=== PATIENT | male | born 1960 | race Caucasian/White ===

== ENCOUNTER 2018-04-15 09:31 | Observation (INO) ==
[2018-04-15] MEDS ORDERED: Vancomycin Inj 1,000 MG in Sodium Chlor 0.9% Inj 250 ML IV.SIG ONE (10:35)
[2018-04-15] MEDS ORDERED: Piperacil/Tazo 3.375 GM Premix 50 ML IV.SIG ONE (10:36)
[2018-04-15 11:10] LABS: Baso # (Auto) 0.4 th/mm3 (0.0-0.2); Eos # (Auto) 0.1 th/mm3 (0.0-0.4); Eos % (Auto) 0.9 % (0.0-4.0); Hematocrit 42.7 % (39.0-51.0); Hemoglobin 14.8 gm/dL (13.0-17.0); Lymph # (Auto) 0.8 th/mm3 (1.0-4.8); Lymph % (Auto) 6.4 % (9.0-44.0); Mean Corpuscular HGB Conc 34.7 % (32.0-36.0); Mean Corpuscular Hemoglobin 33.2 pg (27.0-34.0); Mean Corpuscular Volume 95.8 fL (80.0-100.0); Mean Platelet Volume 8.3 fL (7.0-11.0); Mono # (Auto) 0.5 th/mm3 (0.0-0.9); Mono % (Auto) 3.8 % (0.0-8.0); Neut # (Auto) 11.4 th/mm3 (1.8-7.7); Neut % (Auto) 85.9 % (16.0-70.0); Platelet Count 149 th/mm3 (150-450); Red Blood Count 4.46 mil/mm3 (4.50-5.90); Red Cell Distribution Width 11.8 % (11.6-17.2); White Blood Count 13.2 th/mm3 (4.0-11.0)
[2018-04-15 11:25] LABS: Potassium 4.4 meq/L (3.5-5.1)
[2018-04-15 11:29] LABS: Calcium 8.3 mg/dL (8.5-10.1)
[2018-04-15 11:30] LABS: Carbon Dioxide 21.5 meq/L (21.0-32.0)
[2018-04-15 11:34] LABS: Lymphocytes 2 % (9-44); Monocytes 4 % (0-8); Myelocytes 1 % (0-0)
[2018-04-15 11:35] LABS: Platelet Morphology Normal (Normal); RBC Morphology Normal (Normal)
--- NOTE | 2018-04-15 11:42 | XR ---
EXAM DATE: 04/15/2018 11:20 AM EST AGE/SEX: 58 years / Male INDICATIONS: Right heel pain, stepped on something yesterday went through his shoe and into heel. CLINICAL DATA: This is the patient's initial encounter. Patient reports that signs and symptoms have been present for 2 days and indicates a pain score of 8/10. MEDICAL/SURGICAL HISTORY: None. None. COMPARISON: No prior exams available for comparison. FINDINGS: Small radiopaque foreign bodies are identified in the plantar surface of the right foot. A small needle like fragment is identified along the undersurface of the third metatarsophalangeal david int. Small radiopaque debris is identified within the heel pad. Bony structures are intact. Small heel spurs are noted. CONCLUSION: Small radiopaque foreign bodies are identified within the plantar soft tissues of the foot both in th e forefoot and heel as described. Electronically signed by: Ramin Dallas MD 04/15/2018 11:40 AM EST
--- NOTE | 2018-04-15 11:49 | ED ---
HPI General Chief Complaint: Extremity Injury, Lower Stated Complaint: rt heel injury Time Seen by Provider: 04/15/18 10:28 History of Present Illness HPI Narrative: Patient presents to the emergency department reporting stepped on a drill bit. States it went in approximately 1 inch and went through his sneakers. He is reporting low-grade temp, chronic numbness and tingling secondary to diabetes, he is also reporting increased pain, 8 out of 10, constant. He denies nausea or vomiting. Last tetanus was 2 years ago. Event happened yesterday. Related Data Home Medications Medication Instructions Recorded Confirmed glipizide 15 mg PO BID 04/15/18 04/15/18 levothyroxine 25 mcg PO DAILY 04/15/18 04/15/18 lisinopril 10 mg PO DAILY 04/15/18 04/15/18 metformin 500 mg PO BID 04/15/18 04/15/18 Allergies Allergy/AdvReac Type Severity Reaction Status Date / Time No Known Allergies Allergy Verified 04/15/18 10:18 Review of Systems ROS: all other systems reviewed are negative [facility] Family History Family History Other Family history of diabetes mellitus Social History Social History Substance History: No History of Abuse Second Hand Smoke Exposure: No Smoking Status: Never smoker How Often Do You Have a Drink Containing Alcohol: Monthly or less Recent Travel in [facility] within the Last 8 Weeks: No Recent Out of Country Travel within the Last 8 Weeks: No Immunization History Tetanus Immunization: <5 Years Exam Narrative Exam Narrative: GENERAL: No acute distress. SKIN: Focused skin assessment warm/dry. HEAD: Atraumatic. Normocephalic. EYES: Pupils equal and round. No scleral icterus. No injection or drainage. ENT: No nasal bleeding or discharge. Mucous membranes pink and moist. NECK: Trachea midline. No JVD. CARDIOVASCULAR: Regular rate and rhythm. No murmur appreciated. RESPIRATORY: No accessory muscle use. Clear to auscultation. Breath sounds equal bilaterally. GASTROINTESTINAL: Abdomen soft, non-tender, nondistended. Hepatic and splenic margins not palpable. MUSCULOSKELETAL: Positive puncture wound on the sole of R foot, no active drainage, + TTP in area of wound, sensation intact, + DP pulse NEUROLOGICAL: Awake and alert. No obvious cranial nerve deficits. Motor grossly within normal limits. Normal speech. PSYCHIATRIC: Appropriate mood and affect; insight and judgment normal. Course Initial Documented Vital Signs Temperature 100.2 F H 04/15/18 10:02 Pulse Rate 99 H 04/15/18 10:02 Respiratory Rate 16 04/15/18 10:02 Blood Pressure 165/78 H 04/15/18 10:02 Pulse Oximetry 97 04/15/18 10:02 Last Documented Vital Signs Temperature 99.5 F 04/15/18 13:43 Pulse Rate 92 H 04/15/18 13:43 Respiratory Rate 18 04/15/18 13:43 Blood Pressure 158/72 H 04/15/18 13:43 Pulse Oximetry 96 04/15/18 13:43 Medical Decision Making MDM Narrative Medical decision making narrative: Patient presents to the emergency department with a right foot puncture wound secondary to stepping on a drill bit while wearing sneakers. Patient is a diabetic. Labs and x-rays were ordered. Patient also given 1 g IV vancomycin and 3.375 IV Zosyn. 1200: Leukocytosis, elevated blood sugar, XR: FINDINGS: Small radiopaque foreign bodies are identified in the plantar surface of the right foot.A small needle like fragment is identified along the undersurface of the third metatarsophalangeal joint.Small radiopaque debris is identified within the heel pad.Bony structures are intact. Small heel spurs are noted.CONCLUSION: Small radiopaque foreign bodies are identified within the plantar soft tissues of the foot both in the forefoot and heel as described. 1201: Ortho paged. Spoke to Dr May's PA-> Advised to do 10-14 days of bactrim and doxy and have patient f/u in clinic within 1 week. They would not go and do surgery now, would re-evaluate for possible infection. 1215: Hospitalist paged for admission for obs for IV abx. Medical Screen Exam Complete: Yes Emergency Medical Condition: Yes Lab Data Result diagrams: 04/15/18 10:50 04/15/18 10:50 Lab Results 04/15/18 04/15/18 04/15/18 Range/Units 10:50 10:50 13:40 CBC w Diff Slide review pending WBC 13.2 H (4.0-11.0) th/mm3 RBC 4.46 L (4.50-5.90) mil/mm3 Hgb 14.8 (13.0-17.0) gm/dL Hct 42.7 (39.0-51.0) % MCV 95.8 (80.0-100.0) fL MCH 33.2 (27.0-34.0) pg MCHC 34.7 (32.0-36.0) % RDW 11.8 (11.6-17.2) % Plt Count 149 L (150-450) th/mm3 MPV 8.3 (7.0-11.0) fL Neut % (Auto) 85.9 H (16.0-70.0) % Lymph % (Auto) 6.4 L (9.0-44.0) % [place] % (Auto) 3.8 (0.0-8.0) % Eos % (Auto) 0.9 (0.0-4.0) % Baso % (Auto) 3.0 H (0.0-2.0) % Neut # (Auto) 11.4 H (1.8-7.7) th/mm3 Lymph # (Auto) 0.8 L (1.0-4.8) th/mm3 [place] # (Auto) 0.5 (0.0-0.9) th/mm3 Eos # (Auto) 0.1 (0.0-0.4) th/mm3 Baso # (Auto) 0.4 H (0.0-0.2) th/mm3 WBC Differential Manual diff final Seg Neuts % (Manual) 92 H (16-70) % Band Neuts % (Manual) 1 (0-6) % Lymphocytes % (Manual) 2 L (9-44) % Monocytes % (Manual) 4 (0-8) % Myelocytes % (Man) 1 H (0-0) % Abs Neuts (Manual) 12.4 H (1.8-7.7) th/mm3 Differential Comment . Platelet Estimate Low L (Normal) Platelet Morphology Normal (Normal) RBC Morphology Normal (Normal) Sodium 133 L (136-145) meq/L Potassium 4.4 (3.5-5.1) meq/L Chloride 99 (98-107) meq/L Carbon Dioxide 21.5 (21.0-32.0) meq/L Anion Gap 13 (5-15) meq/L BUN 17 (7-18) mg/dL Creatinine 1.10 (0.60-1.30) mg/dL Estimated GFR 69 L (>89) mL/min POC Glucose 259 H (68-110) mg/dl Random Glucose 368 H (74-106) mg/dL Calcium 8.3 L (8.5-10.1) mg/dL 04/15/18 Range/Units 16:51 CBC w Diff WBC (4.0-11.0) th/mm3 RBC (4.50-5.90) mil/mm3 Hgb (13.0-17.0) gm/dL Hct (39.0-51.0) % MCV (80.0-100.0) fL MCH (27.0-34.0) pg MCHC (32.0-36.0) % RDW (11.6-17.2) % Plt Count (150-450) th/mm3 MPV (7.0-11.0) fL Neut % (Auto) (16.0-70.0) % Lymph % (Auto) (9.0-44.0) % [place] % (Auto) (0.0-8.0) % Eos % (Auto) (0.0-4.0) % Baso % (Auto) (0.0-2.0) % Neut # (Auto) (1.8-7.7) th/mm3 Lymph # (Auto) (1.0-4.8) th/mm3 [place] # (Auto) (0.0-0.9) th/mm3 Eos # (Auto) (0.0-0.4) th/mm3 Baso # (Auto) (0.0-0.2) th/mm3 WBC Differential Seg Neuts % (Manual) (16-70) % Band Neuts % (Manual) (0-6) % Lymphocytes % (Manual) (9-44) % Monocytes % (Manual) (0-8) % Myelocytes % (Man) (0-0) % Abs Neuts (Manual) (1.8-7.7) th/mm3 Differential Comment Platelet Estimate (Normal) Platelet Morphology (Normal) RBC Morphology (Normal) Sodium (136-145) meq/L Potassium (3.5-5.1) meq/L Chloride (98-107) meq/L Carbon Dioxide (21.0-32.0) meq/L Anion Gap (5-15) meq/L BUN (7-18) mg/dL Creatinine (0.60-1.30) mg/dL Estimated GFR (>89) mL/min POC Glucose 190 H (68-110) mg/dl Random Glucose (74-106) mg/dL Calcium (8.5-10.1) mg/dL Imaging Data Radiologist's impression: Foot X-Ray 04/15/18 10:33 CONCLUSION: Small radiopaque foreign bodies are identified within the plantar soft tissues of the foot both in the forefoot and heel as described. Discharge Plan Discharge Disposition Patient Disposition: 30 Still Patient Discharge Condition Condition: Stable Discharge Details Diagnosis: Cellulitis of heel, right, Puncture wound of right heel Physicians Team ED Provider: Ada Escoto Primary Care Provider: Primary Care Aby Lara Attending Provider: Victor Manuel Jimenez Other Providers: Alden Lazaro Discharge Interventions Interventions: ED Discharge Assessment Last Done: 04/15/18 14:13 Status ED Status: Left Department Discharge Information Discharge Date/Time: 04/15/18 14:00
[2018-04-15] MEDS ORDERED: Sod Chloride 0.9% Inj 1,000 ML IV.SIG SCH (12:15)
[2018-04-15] MEDS ORDERED: Dextrose 50% in Water 50 ML Vial IV.PUSH PRN (12:56)
[2018-04-15] MEDS ORDERED: Bisacodyl 10 MG Supp RECTAL PRN (12:58)
[2018-04-15] MEDS ORDERED: Vancomycin Consult Pharmacy OTHER PRN (12:58)
[2018-04-15] MEDS ORDERED: Acetaminophen 325 MG Tablet PO PRN ×2 (12:59→13:00)
[2018-04-15] MEDS ORDERED: Naloxone Inj 0.4 MG/ML Vial IV.PUSH PRN (13:00)
[2018-04-15] MEDS ORDERED: Ketorolac Inj 30 MG/ML (IVP) Vial IV.PUSH PRN ×2 (13:00)
--- NOTE | 2018-04-15 14:01 | P.HP ---
History of Present Illness Primary Care Physician: No Primary Care Physician Chief Complaint: Right heel injury History of Present Illness: This is a 58-year-old male with a history of diabetes mellitus, hypertension and hypothyroidism. Patient presents to the emergency department because of right heel injury when he stepped on a metal resembling a drill bit which went through his sneaker yesterday in his backyard. He reports of low-grade temperature and worsening constant pain scale of 8 out of 10 involving the right foot. It has been bleeding. Tetanus shot 2 years ago. Foot x-ray independently reviewed by me with foreign bodies in the plantar surface of the third metatarsophalangeal joint and heel pad. Punctured wound was irrigated in the emergency department. Patient received IV vancomycin in the emergency department. All other systems reviewed negative, denies fever, chills, cough, UTI symptoms and diarrhea. Review of Systems All other systems reviewed negative except as stated in HPI PMFSH - History History Provided By: Patient - Medical History Medical History: Medical History (Last Reviewed 04/15/18 @ 13:57 by Victor Manuel Jimenez MD) Diabetes HTN (hypertension) Hypothyroid - Surgical History Surgical History: Surgical History (Last Reviewed 04/15/18 @ 13:57 by Victor Manuel Jimenez MD) History of nasal surgery - Family History Family History: Family History (Last Updated 04/15/18 @ 14:57 by Victor Manuel Jimenez MD) Other Family history of diabetes mellitus - Social History I have reviewed the patient's Social History: Yes - Tobacco History Second Hand Smoke Exposure: No Smoking Status: Never smoker - Alcohol History How Often Do You Have a Drink Containing Alcohol: Never - Substance Use History Substance History: No History of Abuse - Travel History Recent Travel in the [place] Within the Last 8 Weeks: No Recent Travel Out of the Country Within the Last 8 Weeks: No - Immunization History Tetanus Immunization: <5 Years Medications and Allergies Active Medications: Active Medications Acetaminophen (Tylenol) 650 mg PO Q4H PRN PRN Reason: Temp > 100.4 Acetaminophen (Tylenol) 650 mg PO Q6HR PRN PRN Reason: PAIN SCALE 1 TO 2 Al Hydroxide/Mg Hydroxide (Milk Of Magnesia Liq) 30 ml PO Q12H PRN PRN Reason: Mild Constipation Bisacodyl (Dulcolax Supp) 10 mg RECTAL DAILY PRN PRN Reason: SEVERE CONSITIPATION Dextrose (D50w Vial) 50 ml IV.PUSH UNSCH PRN PRN Reason: PER HYPOGLYCEMIA PROTOCOL Glipizide (Glucotrol) 15 mg PO BID [facility] Glucagon (Glucagon Inj) 1 mg OTHER PRN PRN PRN Reason: for Hypoglycemia Protocol Sodium Chloride (Ns Inj) 1,000 mls @ 100 mls/hr IV.CONT .Q10H [facility] Piperacillin/Tazobactam/Dextrose (Zosyn 3.375 Gm Premix) 50 mls @ 100 mls/hr IV.SIG Q6H [facility] Insulin Aspart (Novolog Insulin Correctional Sugar Inj) 0 unit SQ ACHS [facility]; Protocol Ketorolac Tromethamine (Toradol Inj) 15 mg IV.PUSH Q6H PRN PRN Reason: PAIN 3-5; IF UABLE TO TAKE PO Stop: 04/20/18 12:59 Ketorolac Tromethamine (Toradol Inj) 30 mg IV.PUSH Q6H PRN PRN Reason: PAIN 6-10;IF UNABLE TO TAKE PO Stop: 04/20/18 12:59 Lactulose (Lactulose Liq) 30 ml PO DAILY PRN PRN Reason: SEVERE CONSITIPATION Levothyroxine Sodium (Synthroid) 25 mcg PO DAILY@0600 [facility] Lisinopril (Prinivil) 10 mg PO DAILY [facility] Metformin HCl (Glucophage) 500 mg PO BID [facility] Naloxone HCl (Narcan Inj) 0.4 mg IV.PUSH UNSCH PRN PRN Reason: SEE LABEL COMMENTS Ondansetron HCl (Zofran Inj) 4 mg IV.PUSH Q6H PRN PRN Reason: NAUSEA OR VOMITING Pharmacy Profile Note (Vancomycin Consult Pharmacy) 1 each OTHER UNSCH PRN PRN Reason: Pharmacy to dose Senna/Docusate Sodium (Rosa-Colace) 1 tab PO BID [facility] Sennosides (Senokot) 17.2 mg PO Q12H PRN PRN Reason: Moderate Constipation Tramadol HCl (Ultram) 50 mg PO Q4H PRN PRN Reason: PAIN SCALE 3 TO 5 Tramadol HCl (Ultram) 100 mg PO Q4H PRN PRN Reason: PAIN SCALE 6 TO 10 Allergies Allergy/AdvReac Type Severity Reaction Status Date / Time No Known Allergies Allergy Verified 04/15/18 10:18 Home Medications Medication Instructions Recorded Confirmed Type glipizide 15 mg PO BID 04/15/18 04/15/18 History levothyroxine 25 mcg PO DAILY 04/15/18 04/15/18 History lisinopril 10 mg PO DAILY 04/15/18 04/15/18 History metformin 500 mg PO BID 04/15/18 04/15/18 History Exam Vital signs: Vital Signs 04/15/18 10:02 04/15/18 13:43 Temperature 100.2 F H 99.5 F Pulse Rate 99 H 92 H Respiratory Rate 16 18 Blood Pressure 165/78 H 158/72 H Pulse Oximetry 97 96 Intake & Output 04/14/18 04/15/18 04/15/18 18:59 06:59 18:59 Intake Total 1300 / 1300 Balance 1300 / 1300 Weight 106.4 kg Intake: IV 1300 / 1300 Zosyn 3.375 GM Premix 50 ML @ 50 / 50 100 mls/hr IV.SIG ONCE ONE Rx#: [id number] NS Inj 1,000 ML @ 1000 mls/hr 1000 / 1000 IV.SIG BOLUS [facility] Rx#:[id number] Vancomycin Inj 1,000 MG In NS 250 / 250 Inj 250 ML @ 250 mls/hr IV.SIG ONCE ONE Rx#:[id number] Narrative: GENERAL: WD WN SKIN: Warm and dry. Punctured wd in the right heel which is tender and slightly warm. No active drainage. HEAD: Atraumatic. Normocephalic. EYES: Pupils equal and round. No scleral icterus. No injection or drainage. ENT: No nasal bleeding or discharge. Mucous membranes pink and moist. NECK: Trachea midline. No JVD. CARDIOVASCULAR: Regular rate and rhythm. RESPIRATORY: No accessory muscle use. Clear to auscultation. Breath sounds equal bilaterally. GASTROINTESTINAL: Abdomen soft, non-tender, nondistended. MUSCULOSKELETAL: Extremities without clubbing, cyanosis, or edema. No obvious deformities. NEUROLOGICAL: Awake and alert. No obvious cranial nerve deficits. Motor grossly within normal limits. Five out of 5 muscle strength in the arms and legs. Normal speech. PSYCHIATRIC: Appropriate mood and affect; insight and judgment normal. Results - Labs CBC & Chem 7: 04/15/18 10:50 04/15/18 10:50 Labs: Laboratory Results - last 24 hr 04/15/18 04/15/18 04/15/18 10:50 10:50 13:40 CBC w Diff Slide review pending WBC 13.2 H RBC 4.46 L Hgb 14.8 Hct 42.7 MCV 95.8 MCH 33.2 MCHC 34.7 RDW 11.8 Plt Count 149 L MPV 8.3 Neut % (Auto) 85.9 H Lymph % (Auto) 6.4 L [place] % (Auto) 3.8 Eos % (Auto) 0.9 Baso % (Auto) 3.0 H Neut # (Auto) 11.4 H Lymph # (Auto) 0.8 L [place] # (Auto) 0.5 Eos # (Auto) 0.1 Baso # (Auto) 0.4 H WBC Differential Manual diff final Seg Neuts % (Manual) 92 H Band Neuts % (Manual) 1 Lymphocytes % (Manual) 2 L Monocytes % (Manual) 4 Myelocytes % (Man) 1 H Abs Neuts (Manual) 12.4 H Differential Comment . Platelet Estimate Low L Platelet Morphology Normal RBC Morphology Normal Sodium 133 L Potassium 4.4 Chloride 99 Carbon Dioxide 21.5 Anion Gap 13 BUN 17 Creatinine 1.10 Estimated GFR 69 L POC Glucose 259 H Random Glucose 368 H Calcium 8.3 L - Imaging Impressions Foot X-Ray 04/15/18 10:33 CONCLUSION: Small radiopaque foreign bodies are identified within the plantar soft tissues of the foot both in the forefoot and heel as described. Caprini VTE Risk Assessment Caprini VTE Risk Assessment: Moderate/High Risk (score >= 2) Caprini Risk Assessment Model: Point Value = 1 Point Value = 2 Point Value = 3 Point Value = 5 Age 41-60 Minor surgery BMI > 25 kg/m2 Swollen legs Varicose veins or History of unexplained or recurrent spontaneous Oral contraceptives or hormone replacement Sepsis (< 1 month) Serious lung disease, including pneumonia (< 1 month) Abnormal pulmonary function Acute myocardial infarction Congestive heart failure (< 1 month) History of inflammatory bowel disease Medical patient at bed rest Age 61-74 Arthroscopic surgery Major open surgery (> 45 min) Laparoscopic surgery (> 45 min) Malignancy Confined to bed (> 72 hours) Immobilizing plaster cast Central venous access Age >= 75 History of VTE Family history of VTE Factor V Leiden Prothrombin [id number] Lupus anticoagulant Anticardiolipin antibodies Elevated serum homocysteine Heparin-induced thrombocytopenia Other congenital or acquired thrombophilia Stroke (< 1 month) Elective arthroplasty Hip, pelvis, or leg fracture Acute spinal cord injury (< 1 month) Prophylaxis Regimen: Total Risk Factor Score Risk Level Prophylaxis Regimen 0-1 Low Early ambulation 2 Moderate Order ONE of the following: *Sequential Compression Device (SCD) *Heparin 5000 units SQ BID 3-4 Higher Order ONE of the following medications: *Heparin 5000 units SQ TID *Enoxaparin/Lovenox 40 mg SQ daily (WT < 150 kg, CrCl > 30 mL/min) *Enoxaparin/Lovenox 30 mg SQ daily (WT < 150 kg, CrCl > 10-29 mL/min) *Enoxaparin/Lovenox 30 mg SQ BID (WT < 150 kg, CrCl > 30 mL/min) AND/OR *Sequential Compression Device (SCD) 5 or more Highest Order ONE of the following medications: *Heparin 5000 units SQ TID (Preferred with Epidurals) *Enoxaparin/Lovenox 40 mg SQ daily (WT < 150 kg, CrCl > 30 mL/min) *Enoxaparin/Lovenox 30 mg SQ daily (WT < 150 kg, CrCl > 10-29 mL/min) *Enoxaparin/Lovenox 30 mg SQ BID (WT < 150 kg, CrCl > 30 mL/min) AND *Sequential Compression Device (SCD) Assessment and Plan - Plan This is a 58-year-old male with a history of diabetes mellitus, hypertension and hypothyroidism. He presents with a right heel injury after stepping on a drill bit associated with low-grade temperature and constant pain. X-ray show foreign body in the heel pad Likely infected punctured wound with retained FB(drill bit) - right foot with sepsis. Continue IV vancomycin and Zosyn. Pain management with tramadol and IV Toradol. Keep patient n.p.o. and consult podiatry. Follow-up culture. FB in the right metatarsophalangeal joint area. No evidence of foreign body on direct inspection. Uncontrolled diabetes mellitus not in DKA. Continue IV hydration and monitor fingersticks with sliding scale coverage. Restart home medication of glipizide and metformin DVT prophylaxis with SCD and early ambulation
--- NOTE | 2018-04-15 15:10 | P.PNPOD ---
Physical Exam Vital signs: Vital Signs 04/15/18 10:02 04/15/18 13:43 Temperature 100.2 F H 99.5 F Pulse Rate 99 H 92 H Respiratory Rate 16 18 Blood Pressure 165/78 H 158/72 H Pulse Oximetry 97 96 Intake & Output 04/14/18 04/15/18 04/15/18 18:59 06:59 18:59 Intake Total 1300 / 1300 Balance 1300 / 1300 Weight 106.4 kg Intake: IV 1300 / 1300 Zosyn 3.375 GM Premix 50 ML @ 50 / 50 100 mls/hr IV.SIG ONCE ONE Rx#: [id number] NS Inj 1,000 ML @ 1000 mls/hr 1000 / 1000 IV.SIG BOLUS [facility] Rx#:[id number] Vancomycin Inj 1,000 MG In NS 250 / 250 Inj 250 ML @ 250 mls/hr IV.SIG ONCE ONE Rx#:[id number] Medications and Allergies Active Medications: Active Medications Acetaminophen (Tylenol) 650 mg PO Q4H PRN PRN Reason: Temp > 100.4 Acetaminophen (Tylenol) 650 mg PO Q6HR PRN PRN Reason: PAIN SCALE 1 TO 2 Al Hydroxide/Mg Hydroxide (Milk Of Magnesia Liq) 30 ml PO Q12H PRN PRN Reason: Mild Constipation Bisacodyl (Dulcolax Supp) 10 mg RECTAL DAILY PRN PRN Reason: SEVERE CONSITIPATION Dextrose (D50w Vial) 50 ml IV.PUSH UNSCH PRN PRN Reason: PER HYPOGLYCEMIA PROTOCOL Glipizide (Glucotrol) 15 mg PO BID [facility] Glucagon (Glucagon Inj) 1 mg OTHER PRN PRN PRN Reason: for Hypoglycemia Protocol Sodium Chloride (Ns Inj) 1,000 mls @ 100 mls/hr IV.CONT .Q10H [facility] Piperacillin/Tazobactam/Dextrose (Zosyn 3.375 Gm Premix) 50 mls @ 100 mls/hr IV.SIG Q6H [facility] Insulin Aspart (Novolog Insulin Correctional Sugar Inj) 0 unit SQ ACHS [facility]; Protocol Ketorolac Tromethamine (Toradol Inj) 15 mg IV.PUSH Q6H PRN PRN Reason: PAIN 3-5; IF UABLE TO TAKE PO Stop: 04/20/18 12:59 Ketorolac Tromethamine (Toradol Inj) 30 mg IV.PUSH Q6H PRN PRN Reason: PAIN 6-10;IF UNABLE TO TAKE PO Stop: 04/20/18 12:59 Lactulose (Lactulose Liq) 30 ml PO DAILY PRN PRN Reason: SEVERE CONSITIPATION Levothyroxine Sodium (Synthroid) 25 mcg PO DAILY@0600 [facility] Lisinopril (Prinivil) 10 mg PO DAILY [facility] Metformin HCl (Glucophage) 500 mg PO BID [facility] Naloxone HCl (Narcan Inj) 0.4 mg IV.PUSH UNSCH PRN PRN Reason: SEE LABEL COMMENTS Ondansetron HCl (Zofran Inj) 4 mg IV.PUSH Q6H PRN PRN Reason: NAUSEA OR VOMITING Pharmacy Profile Note (Vancomycin Consult Pharmacy) 1 each OTHER UNSCH PRN PRN Reason: Pharmacy to dose Senna/Docusate Sodium (Rosa-Colace) 1 tab PO BID [facility] Sennosides (Senokot) 17.2 mg PO Q12H PRN PRN Reason: Moderate Constipation Tramadol HCl (Ultram) 50 mg PO Q4H PRN PRN Reason: PAIN SCALE 3 TO 5 Tramadol HCl (Ultram) 100 mg PO Q4H PRN PRN Reason: PAIN SCALE 6 TO 10 Allergies Allergy/AdvReac Type Severity Reaction Status Date / Time No Known Allergies Allergy Verified 04/15/18 10:18 Home Medications Medication Instructions Recorded Confirmed Type glipizide 15 mg PO BID 04/15/18 04/15/18 History levothyroxine 25 mcg PO DAILY 04/15/18 04/15/18 History lisinopril 10 mg PO DAILY 04/15/18 04/15/18 History metformin 500 mg PO BID 04/15/18 04/15/18 History Results - Labs CBC & Chem 7: 04/15/18 10:50 04/15/18 10:50 Laboratory Results - last 24 hr 04/15/18 04/15/18 04/15/18 10:50 10:50 13:40 CBC w Diff Slide review pending WBC 13.2 H RBC 4.46 L Hgb 14.8 Hct 42.7 MCV 95.8 MCH 33.2 MCHC 34.7 RDW 11.8 Plt Count 149 L MPV 8.3 Neut % (Auto) 85.9 H Lymph % (Auto) 6.4 L [place] % (Auto) 3.8 Eos % (Auto) 0.9 Baso % (Auto) 3.0 H Neut # (Auto) 11.4 H Lymph # (Auto) 0.8 L [place] # (Auto) 0.5 Eos # (Auto) 0.1 Baso # (Auto) 0.4 H WBC Differential Manual diff final Seg Neuts % (Manual) 92 H Band Neuts % (Manual) 1 Lymphocytes % (Manual) 2 L Monocytes % (Manual) 4 Myelocytes % (Man) 1 H Abs Neuts (Manual) 12.4 H Differential Comment . Platelet Estimate Low L Platelet Morphology Normal RBC Morphology Normal Sodium 133 L Potassium 4.4 Chloride 99 Carbon Dioxide 21.5 Anion Gap 13 BUN 17 Creatinine 1.10 Estimated GFR 69 L POC Glucose 259 H Random Glucose 368 H Calcium 8.3 L - Imaging Impressions Foot X-Ray 04/15/18 10:33 CONCLUSION: Small radiopaque foreign bodies are identified within the plantar soft tissues of the foot both in the forefoot and heel as described. Assessment and Plan - Assessment (1) Puncture wound of right heel Code(s): S91.331A - Puncture wound without foreign body, right foot, initial encounter Status: Acute (2) Cellulitis of heel, right Code(s): L03.115 - Cellulitis of right lower limb Status: Acute - Plan Consent ordered NPO after midnight Surgery planned noon tomorrow Plan to see patient tomorrow
[2018-04-15] MEDS: Sod Chloride 0.9% Inj 1,000 ML IV.CONT SCH (15:51)
[2018-04-15] MEDS: Insulin NovoLOG Aspart Correctional Sugar Inj SQ SCH ×2 (17:06→21:45)
[2018-04-15] MEDS: Senna/Docusate Sodium 8.6/50 MG Tablet PO SCH (21:42)
[2018-04-15] MEDS: glipiZIDE 5 MG Tablet PO SCH (21:42)
[2018-04-15] MEDS: Piperacil/Tazo 3.375 GM Premix 50 ML IV.SIG SCH (21:57)
[2018-04-16] MEDS: Vancomycin Inj 1,250 MG in Sodium Chlor 0.9% Inj 250 ML IV.SIG SCH ×2 (00:28→11:45)
[2018-04-16] MEDS: Sod Chloride 0.9% Inj 1,000 ML IV.CONT SCH ×3 (00:28→18:55)
[2018-04-16] MEDS: Piperacil/Tazo 3.375 GM Premix 50 ML IV.SIG SCH ×4 (03:36→20:26)
[2018-04-16 06:53] LABS: Baso % (Auto) 0.1 % (0.0-2.0); Eos # (Auto) 0.1 th/mm3 (0.0-0.4); Eos % (Auto) 1.2 % (0.0-4.0); Hemoglobin 14.6 gm/dL (13.0-17.0); Lymph # (Auto) 1.5 th/mm3 (1.0-4.8); Lymph % (Auto) 13.4 % (9.0-44.0); Mean Corpuscular Hemoglobin 32.6 pg (27.0-34.0); Mean Corpuscular Volume 95.8 fL (80.0-100.0); Mean Platelet Volume 8.1 fL (7.0-11.0); Mono # (Auto) 0.6 th/mm3 (0.0-0.9); Mono % (Auto) 5.4 % (0.0-8.0); Neut # (Auto) 9.2 th/mm3 (1.8-7.7); Neut % (Auto) 79.9 % (16.0-70.0); Platelet Count 158 th/mm3 (150-450); Red Blood Count 4.49 mil/mm3 (4.50-5.90); White Blood Count 11.4 th/mm3 (4.0-11.0)
[2018-04-16 07:00] LABS: Chloride 102 meq/L (98-107); Potassium 3.7 meq/L (3.5-5.1); Sodium 136 meq/L (136-145)
[2018-04-16 07:08] LABS: Calcium 7.8 mg/dL (8.5-10.1)
[2018-04-16 07:09] LABS: Anion Gap 11 meq/L (5-15); Carbon Dioxide 23.2 meq/L (21.0-32.0)
[2018-04-16 07:24] LABS: Blood Urea Nitrogen 8 mg/dL (7-18); Glomerular Filtration Rate Greater Than 89 mL/min (>89); Glucose,Random 123 mg/dL (74-106)
[2018-04-16] MEDS: Insulin NovoLOG Aspart Correctional Sugar Inj SQ SCH ×4 (08:30→20:33)
[2018-04-16] MEDS: Lisinopril 10 MG Tablet PO SCH (09:27)
[2018-04-16] MEDS: Senna/Docusate Sodium 8.6/50 MG Tablet PO SCH ×2 (09:29→20:35)
[2018-04-16] MEDS: glipiZIDE 5 MG Tablet PO SCH (09:34)
[2018-04-16] MEDS ORDERED: fentaNYL Citrate Inj 100 MCG/2 ML Ampul ONE (11:51)
[2018-04-16] MEDS ORDERED: Bupivacaine PF 0.25% Inj 30 ML Vial ONE (12:00)
[2018-04-16] MEDS ORDERED: Chlorhexidine Gluconate 2% 1 Pack (2 Cloths) TOPICAL ONE (12:17)
[2018-04-16] MEDS ORDERED: Metoprolol Tartrate 25 MG Tablet PO ONE (12:17)
[2018-04-16] MEDS ORDERED: Neomycin/Polymyxin G.U. Irrigant 1 ML Ampul ONE (12:19)
--- NOTE | 2018-04-16 12:19 | P.CONPOD ---
History of Present Illness Service: podiatry Consult date: 04/16/18 Reason for Consult: Right heel puncture wound Primary Care Provider: No Primary Care Physician Chief Complaint: Right heel injury History of Present Illness: Patient states that he stepped on a piece of metal hard on the right heel a few days prior to admission. He says the pain progressively worsened and he tried to go to work on Sunday, but could not due to pain increasing. he is diabetic. He says his sugars are usually under 150mg/dl Review of Systems All other systems reviewed negative except as stated in HPI PMFSH - History History Provided By: Patient - Medical History Medical History: Medical History (Last Reviewed 04/15/18 @ 13:57 by Victor Manuel Jimenez MD) Diabetes HTN (hypertension) Hypothyroid - Surgical History Surgical History: Surgical History (Last Reviewed 04/15/18 @ 13:57 by Victor Manuel Jimenez MD) History of nasal surgery - Family History Family History: Family History (Last Updated 04/15/18 @ 14:57 by Victor Manuel Jimenez MD) Other Family history of diabetes mellitus - Tobacco History Second Hand Smoke Exposure: No Smoking Status: Never smoker - Alcohol History How Often Do You Have a Drink Containing Alcohol: Monthly or less - Substance Use History Substance History: No History of Abuse - Travel History Recent Travel in the [place] Within the Last 8 Weeks: No Recent Travel Out of the Country Within the Last 8 Weeks: No - Immunization History Tetanus Immunization: <5 Years Medications and Allergies Active Medications: Active Medications Acetaminophen (Tylenol) 650 mg PO Q4H PRN PRN Reason: Temp > 100.4 Acetaminophen (Tylenol) 650 mg PO Q6HR PRN PRN Reason: PAIN SCALE 1 TO 2 Al Hydroxide/Mg Hydroxide (Milk Of Magnesia Liq) 30 ml PO Q12H PRN PRN Reason: Mild Constipation Bisacodyl (Dulcolax Supp) 10 mg RECTAL DAILY PRN PRN Reason: SEVERE CONSITIPATION Dextrose (D50w Vial) 50 ml IV.PUSH UNSCH PRN PRN Reason: PER HYPOGLYCEMIA PROTOCOL Glucagon (Glucagon Inj) 1 mg OTHER PRN PRN PRN Reason: for Hypoglycemia Protocol Sodium Chloride (Ns Inj) 1,000 mls @ 100 mls/hr IV.CONT .Q10H [facility] Last Admin: 04/16/18 09:58 Dose: 100 mls/hr Piperacillin/Tazobactam/Dextrose (Zosyn 3.375 Gm Premix) 50 mls @ 100 mls/hr IV.SIG Q6H [facility] Last Infusion: 04/16/18 09:58 Dose: Infused Vancomycin HCl 1,250 mg/ (Sodium Chloride) 262.5 mls @ 250 mls/hr IV.SIG Q12H [facility] Last Admin: 04/16/18 11:45 Dose: 250 mls/hr Insulin Aspart (Novolog Insulin Correctional Sugar Inj) 0 unit SQ [facility]; Protocol Last Admin: 04/16/18 11:06 Dose: Not Given Ketorolac Tromethamine (Toradol Inj) 15 mg IV.PUSH Q6H PRN PRN Reason: PAIN 3-5; IF UABLE TO TAKE PO Stop: 04/20/18 12:59 Ketorolac Tromethamine (Toradol Inj) 30 mg IV.PUSH Q6H PRN PRN Reason: PAIN 6-10;IF UNABLE TO TAKE PO Stop: 04/20/18 12:59 Lactulose (Lactulose Liq) 30 ml PO DAILY PRN PRN Reason: SEVERE CONSITIPATION Levothyroxine Sodium (Synthroid) 25 mcg PO DAILY@0600 [facility] Last Admin: 04/16/18 05:09 Dose: Not Given Lisinopril (Prinivil) 10 mg PO DAILY [facility] Last Admin: 04/16/18 09:27 Dose: 10 mg Miscellaneous Information ([facility] Ordered Lab Info) 0 each OTHER ONCE ONE Stop: 04/17/18 11:46 Naloxone HCl (Narcan Inj) 0.4 mg IV.PUSH UNSCH PRN PRN Reason: SEE LABEL COMMENTS Ondansetron HCl (Zofran Inj) 4 mg IV.PUSH Q6H PRN PRN Reason: NAUSEA OR VOMITING Pharmacy Profile Note (Vancomycin Consult Pharmacy) 1 each OTHER UNSCH PRN PRN Reason: Pharmacy to dose Senna/Docusate Sodium (Rosa-Colace) 1 tab PO BID [facility] Last Admin: 04/16/18 09:29 Dose: Not Given Sennosides (Senokot) 17.2 mg PO Q12H PRN PRN Reason: Moderate Constipation Tramadol HCl (Ultram) 50 mg PO Q4H PRN PRN Reason: PAIN SCALE 3 TO 5 Last Admin: 04/16/18 03:39 Dose: 50 mg Tramadol HCl (Ultram) 100 mg PO Q4H PRN PRN Reason: PAIN SCALE 6 TO 10 Last Admin: 04/15/18 15:48 Dose: 100 mg Allergies Allergy/AdvReac Type Severity Reaction Status Date / Time No Known Allergies Allergy Verified 04/15/18 10:18 Home Medications Medication Instructions Recorded Confirmed Type glipizide 15 mg PO BID 04/15/18 04/15/18 History levothyroxine 25 mcg PO DAILY 04/15/18 04/15/18 History lisinopril 10 mg PO DAILY 04/15/18 04/15/18 History metformin 500 mg PO BID 04/15/18 04/15/18 History Physical Exam Vital signs: Vital Signs 04/15/18 13:43 04/15/18 20:00 04/16/18 00:16 Temperature 99.5 F 99.6 F 99.3 F Pulse Rate 92 H 94 H 94 H Respiratory Rate 18 18 18 Blood Pressure 158/72 H 147/78 H 143/76 H Pulse Oximetry 96 95 96 04/16/18 11:01 04/16/18 11:34 Temperature 96.7 F L 96.7 F L Pulse Rate 80 80 Respiratory Rate 18 18 Blood Pressure 151/90 H 151/90 H Pulse Oximetry 96 96 Intake & Output 04/15/18 04/16/18 04/16/18 18:59 06:59 18:59 Intake Total 1620 / 1620 1600 / 1600 1050 / 1050 Balance 1620 / 1620 1600 / 1600 1050 / 1050 Weight 106.4 kg 106 kg Intake: IV 1300 / 1300 1600 / 1600 1050 / 1050 NS Inj 1,000 ML @ 100 mls/hr IV 1000 / 1000 1000 / 1000 .CONT .Q10H [facility] Rx#:[id number] Zosyn 3.375 GM Premix 50 ML @ 50 / 50 100 / 100 50 / 50 100 mls/hr IV.SIG Q6H [facility] Rx#: [id number] NS Inj 1,000 ML @ 1000 mls/hr 1000 / 1000 IV.SIG BOLUS [facility] Rx#:[id number] Vancomycin Inj 1,000 MG In NS 250 / 250 Inj 250 ML @ 250 mls/hr IV.SIG ONCE ONE Rx#:[id number] Vancomycin Inj 1,250 MG In NS 500 / 500 Inj 250 ML @ 250 mls/hr IV.SIG Q12H [facility] Rx#:[id number] Oral 320 / 320 0 / 0 Other: # Voids 2 Narrative: Right plantar heel with small puncture wound with mild surrounding erythema/ edema. A small metal fragment is noted in center of puncture area with tenderness to palpation noted. There is no jose purulence noted. Results - Labs CBC & Chem 7: 04/16/18 06:18 04/16/18 06:18 Laboratory Results - last 24 hr 04/15/18 04/15/18 04/15/18 13:40 16:51 21:45 CBC w Diff WBC RBC Hgb Hct MCV MCH MCHC RDW Plt Count MPV Neut % (Auto) Lymph % (Auto) [place] % (Auto) Eos % (Auto) Baso % (Auto) Neut # (Auto) Lymph # (Auto) [place] # (Auto) Eos # (Auto) Baso # (Auto) WBC Differential Differential Comment Sodium Potassium Chloride Carbon Dioxide Anion Gap BUN Creatinine Estimated GFR POC Glucose 259 H 190 H 183 H Random Glucose Calcium 04/16/18 04/16/18 04/16/18 06:18 06:18 07:19 CBC w Diff Auto diff final WBC 11.4 H RBC 4.49 L Hgb 14.6 Hct 43.0 MCV 95.8 MCH 32.6 MCHC 34.0 RDW 12.0 Plt Count 158 MPV 8.1 Neut % (Auto) 79.9 H Lymph % (Auto) 13.4 [place] % (Auto) 5.4 Eos % (Auto) 1.2 Baso % (Auto) 0.1 Neut # (Auto) 9.2 H Lymph # (Auto) 1.5 [place] # (Auto) 0.6 Eos # (Auto) 0.1 Baso # (Auto) 0.0 WBC Differential . Differential Comment . Sodium 136 Potassium 3.7 Chloride 102 Carbon Dioxide 23.2 Anion Gap 11 BUN 8 Creatinine 0.77 Estimated GFR Greater than 89 POC Glucose 136 H Random Glucose 123 H D Calcium 7.8 L 04/16/18 10:50 CBC w Diff WBC RBC Hgb Hct MCV MCH MCHC RDW Plt Count MPV Neut % (Auto) Lymph % (Auto) [place] % (Auto) Eos % (Auto) Baso % (Auto) Neut # (Auto) Lymph # (Auto) [place] # (Auto) Eos # (Auto) Baso # (Auto) WBC Differential Differential Comment Sodium Potassium Chloride Carbon Dioxide Anion Gap BUN Creatinine Estimated GFR POC Glucose 145 H Random Glucose Calcium Microbiology 04/15/18 10:55 Blood - Peripheral Aerobic Blood Culture - Preliminary No growth in 1 day 04/15/18 10:55 Blood - Peripheral Anaerobic Blood Culture - Preliminary No growth in 1 day 04/15/18 10:50 Blood - Peripheral Aerobic Blood Culture - Preliminary No growth in 1 day 04/15/18 10:50 Blood - Peripheral Anaerobic Blood Culture - Preliminary No growth in 1 day Assessment and Plan - Assessment (1) Puncture wound of right heel Code(s): S91.331A - Puncture wound without foreign body, right foot, initial encounter Status: Acute (2) Cellulitis of heel, right Code(s): L03.115 - Cellulitis of right lower limb Status: Acute - Plan Consent reviewed NPO Surgery planned noon today Risks, benefits, potential complications discussed with patient. He is agreeable to proceed with surgery. (1) Puncture wound of right heel Qualifiers: Encounter type: initial encounter Qualified Code(s): S91.331A - Puncture wound without foreign body, right foot, initial encounter
--- NOTE | 2018-04-16 12:24 | P.BOP ---
- Preoperative Diagnosis (1) Cellulitis of heel, right (2) Puncture wound of right heel - Postoperative Diagnosis (1) Cellulitis of heel, right (2) Puncture wound of right heel Date of procedure: 04/16/18 Procedure: 1. Irrigation and debridement of puncture wound right plantar heel Plantar right heel with puncture wound with small metal fragment visible, mild surrounding erythema. 1ml milky pink purulence encountered. Wound explored and found to be the following size: 0.5 cm x 0.5 cm x 1.5 cm deep Incision made to extend puncture wound 0.5cm distally and proximally. Foreign body encountered resembling rubber and gravel. Excisional debridement performed of the cylindrical wound utilizing #15 blade, rongeur, curette, of debris and nonviable tissue down to level of subcutaneous tissue and irrigated with 3L Normal saline with irrigant Packing with 1/4'' iodoform gauze and partial closure with 2-0 nylon suture. Dressing with 4x4, abd, cast padding, pb right foot. Nonweightbearing right foot. Daily packing ordered per nursing. Await cultures No further surgery planned at this time Ok with discharge when cultures back with daily packing to continue at home and antibiotic Rx per culture results. Anesthesia: MAC, local (10mL 0.25% marcaine plain) Surgeon: Alden Lazaro DPM Shank Skinner: staff Estimated blood loss (mL): 3 Pathology: other (1. culture right heel) Condition: stable Disposition: PACU
[2018-04-16] MEDS ORDERED: Lidocaine PF 1% Inj 5 ML Syringe INFILTRATN ONE (12:29)
[2018-04-16] MEDS ORDERED: Sodium Chlor 0.9% Inj 500 ML IV.SIG SCH (13:00)
--- NOTE | 2018-04-16 15:37 | P.PN ---
Subjective Interval history: Follow up for diabetic foot infection status post I&D of puncture wound right plantar heel. Patient is currently resting in bed. He reports adequate pain control. No fever or chills. Physical Exam Vital signs: Vital Signs 04/15/18 20:00 04/16/18 00:16 04/16/18 11:01 Temperature 99.6 F 99.3 F 96.7 F L Pulse Rate 94 H 94 H 80 Respiratory Rate 18 18 18 Blood Pressure 147/78 H 143/76 H 151/90 H Pulse Oximetry 95 96 96 04/16/18 11:34 04/16/18 12:50 04/16/18 13:16 Temperature 96.7 F L 97.8 F Pulse Rate 80 69 87 Respiratory Rate 18 16 16 Blood Pressure 151/90 H 78/50 L 110/67 Pulse Oximetry 96 98 95 04/16/18 13:31 04/16/18 13:42 04/16/18 14:07 Temperature 98.1 F 97.0 F L Pulse Rate 83 84 84 Respiratory Rate 16 16 14 Blood Pressure 112/75 116/78 153/88 H Pulse Oximetry 97 97 84 L Intake & Output 04/15/18 04/16/18 04/16/18 18:59 06:59 18:59 Intake Total 1620 / 1620 1600 / 1600 2112.5 / 2112.5 Balance 1620 / 1620 1600 / 1600 2112.5 / 2112.5 Weight 106.4 kg 106 kg Intake: IV 1300 / 1300 1600 / 1600 1712.5 / 1712.5 NS Inj 1,000 ML @ 100 mls/hr IV 1000 / 1000 1000 / 1000 .CONT .Q10H [facility] Rx#:[id number] LR 1000 mL Inj 1,000 ML @ 30 400 / 400 mls/hr IV.SIG .Q24H [facility] Rx#: [id number] Zosyn 3.375 GM Premix 50 ML @ 50 / 50 100 / 100 50 / 50 100 mls/hr IV.SIG Q6H [facility] Rx#: [id number] NS Inj 1,000 ML @ 1000 mls/hr 1000 / 1000 IV.SIG BOLUS [facility] Rx#:[id number] Vancomycin Inj 1,000 MG In NS 250 / 250 Inj 250 ML @ 250 mls/hr IV.SIG ONCE ONE Rx#:[id number] Vancomycin Inj 1,250 MG In NS 500 / 500 262.5 / 262.5 Inj 250 ML @ 250 mls/hr IV.SIG Q12H [facility] Rx#:[id number] Oral 320 / 320 0 / 0 Anesthesia Amount 400 / 400 Other: # Voids 2 Narrative: GENERAL: Alert, NAD. SKIN: Warm and dry. HEAD: Normocephalic. EYES: No scleral icterus. No injection or drainage. NECK: Supple, trachea midline. No JVD or lymphadenopathy. CARDIOVASCULAR: Regular rate and rhythm without murmurs, gallops, or rubs. RESPIRATORY: Breath sounds equal bilaterally. No accessory muscle use. GASTROINTESTINAL: Abdomen soft, non-tender, nondistended. MUSCULOSKELETAL: No cyanosis, or edema. Right foot wrapped. S/p I&D. BACK: Nontender without obvious deformity. No CVA tenderness. Results - Labs CBC & Chem 7: 04/16/18 06:18 04/16/18 06:18 Laboratory Results - last 24 hr 04/15/18 04/15/18 04/16/18 16:51 21:45 06:18 CBC w Diff Auto diff final WBC 11.4 H RBC 4.49 L Hgb 14.6 Hct 43.0 MCV 95.8 MCH 32.6 MCHC 34.0 RDW 12.0 Plt Count 158 MPV 8.1 Neut % (Auto) 79.9 H Lymph % (Auto) 13.4 [place] % (Auto) 5.4 Eos % (Auto) 1.2 Baso % (Auto) 0.1 Neut # (Auto) 9.2 H Lymph # (Auto) 1.5 [place] # (Auto) 0.6 Eos # (Auto) 0.1 Baso # (Auto) 0.0 WBC Differential . Differential Comment . Sodium Potassium Chloride Carbon Dioxide Anion Gap BUN Creatinine Estimated GFR POC Glucose 190 H 183 H Random Glucose Calcium 04/16/18 04/16/18 04/16/18 06:18 07:19 10:50 CBC w Diff WBC RBC Hgb Hct MCV MCH MCHC RDW Plt Count MPV Neut % (Auto) Lymph % (Auto) [place] % (Auto) Eos % (Auto) Baso % (Auto) Neut # (Auto) Lymph # (Auto) [place] # (Auto) Eos # (Auto) Baso # (Auto) WBC Differential Differential Comment Sodium 136 Potassium 3.7 Chloride 102 Carbon Dioxide 23.2 Anion Gap 11 BUN 8 Creatinine 0.77 Estimated GFR Greater than 89 POC Glucose 136 H 145 H Random Glucose 123 H D Calcium 7.8 L 04/16/18 14:14 CBC w Diff WBC RBC Hgb Hct MCV MCH MCHC RDW Plt Count MPV Neut % (Auto) Lymph % (Auto) [place] % (Auto) Eos % (Auto) Baso % (Auto) Neut # (Auto) Lymph # (Auto) [place] # (Auto) Eos # (Auto) Baso # (Auto) WBC Differential Differential Comment Sodium Potassium Chloride Carbon Dioxide Anion Gap BUN Creatinine Estimated GFR POC Glucose 153 H Random Glucose Calcium Microbiology 04/15/18 10:55 Blood - Peripheral Aerobic Blood Culture - Preliminary No growth in 1 day 04/15/18 10:55 Blood - Peripheral Anaerobic Blood Culture - Preliminary No growth in 1 day 04/15/18 10:50 Blood - Peripheral Aerobic Blood Culture - Preliminary No growth in 1 day 04/15/18 10:50 Blood - Peripheral Anaerobic Blood Culture - Preliminary No growth in 1 day - Imaging Foot X-Ray 04/15/18 10:33 CONCLUSION: Small radiopaque foreign bodies are identified within the plantar soft tissues of the foot both in the forefoot and heel as described. - Procedures Irrigation and debridement of puncture wound right plantar heel 04/16/2018. Assessment and Plan - Plan Mr. Ashraf is a pleasant 58-year-old male with a history of diabetes mellitus, hypertension, hypothyroidism who presented to the emergency department on 04/15/2018 due to right heel injury when he stepped on a metal resembling a drill bit which went through his sneaker. Foot x-ray shows small radiopaque foreign bodies within the plantar soft tissues. Podiatry was consulted. Infected puncture wound of the right foot -Wound culture pending. Blood cultures negative so far. -Patient is currently on vancomycin and Zosyn. -Toradol, tramadol for pain -If cultures are negative, will consider empiric antibiotics at the time of discharge. Diabetes mellitus -Patient takes metformin and glipizide at home. -Blood glucose within goal range 140-180. -Continue sliding scale insulin for now. -We will try to adjust patient's metformin and glipizide dosage at the time of discharge. Hypothyroidism Hypertension -Levothyroxine 25 mcg every morning and Lisinopril 10mg Qday. Full code. SCDs.
[2018-04-16 19:11] VITALS: O2SAT 97
--- NOTE | 2018-04-16 21:39 | MP ---
cc: Alden Lazaro DPVera DATE OF OPERATION: 04/16/2018 INDICATIONS: The patient presented initially after puncture wound to his right heel a few days prior to admission, he stated that the pain was increasing. Something had punctured through his shoe that he stated was some piece of metal. He had noticed increased pain and came in for admission. I discussed with him the risks, benefits, and potential complications of surgery and that he did need to undergo irrigation and debridement of the puncture wound to the right plantar heel. He agreed to move forward with surgery as discussed. DESCRIPTION OF PROCEDURE: He was seen in preop holding by myself, nursing staff, and anesthesia, where the correct patient, side, and site were all confirmed to be correct, the right foot. He was then taken to the surgical suite in supine position. The right foot was prepped and draped in normal sterile fashion. After timeouts were performed as per facility protocol, attention was directed to the right plantar heel where there was noted to be a puncture wound visible with small metal fragments at the surface. There was noted to be approximately 1 mL of milky purulent pink material that was encountered. Upon further exploration of the wound, the original wound was found to be approximately 0.5 cm in diameter x 1.5 cm in depth down to but not including bone through the subcutaneous layer. An incision was made to extend the puncture wound, both proximally and distally an additional 0.5 cm. The foreign body was encountered resembling a rubber, gravel, or possibly the sole of his shoe that had punctured through. It was small, but it was deep within the wound cavity. Excisional debridement was then performed of the cylindrical shaped wound utilizing a #15 blade rongeur to curette of all the debris and nonviable tissue down to the level of subcutaneous tissue, followed by irrigation with 3 liters of normal saline with irrigant, followed by partial closure with 2-0 nylon suture and packing with 1/4 inch iodoform gauze. The patient tolerated the procedure and anesthesia well without complications and was taken back to PACU with vital signs stable and vascular status intact to the remainder of the right lower extremity. He will be nonweightbearing to the right lower extremity and will follow up in clinic in 2 weeks for sutures to be removed. He is to continue packing. No further surgery is planned at this time. SHORT OPERATIVE NOTE SURGEON: Alden Lazaro DPM BUDGET ENGINEER: Staff. PREOPERATIVE DIAGNOSES: 1. Cellulitis of right heel. 2. Puncture wound, right heel. POSTOPERATIVE DIAGNOSIS: 1. Cellulitis of right heel. 2. Puncture wound, right heel. PROCEDURE PERFORMED: Irrigation and debridement of puncture wound, right plantar heel. PROPHYLAXIS: On IV antibiotics already. PATHOLOGY: Culture, right heel. ANESTHESIA: MAC plus local consisting of 10 mL of 0.25% Marcaine plain. ESTIMATED BLOOD LOSS: 3 mL. COMPLICATIONS: None. CONDITION: Stable to PACU. DISPOSITION: Nonweightbearing right foot. Daily packing orders were placed per nursing to teach the patient how to do this daily at home upon discharge. We will await cultures to determine appropriate antibiotics. No further surgery is planned at this time. Follow up in clinic in 2 weeks for possible suture removal. GINNY Kirkpatrick/katie , 07:19 PM , 07:25 PM
[2018-04-17] MEDS: Vancomycin Inj 1,250 MG in Sodium Chlor 0.9% Inj 250 ML IV.SIG SCH (00:59)
[2018-04-17] MEDS: Piperacil/Tazo 3.375 GM Premix 50 ML IV.SIG SCH ×2 (02:50→08:54)
[2018-04-17] MEDS: Sod Chloride 0.9% Inj 1,000 ML IV.CONT SCH (05:34)
[2018-04-17] MEDS: Insulin NovoLOG Aspart Correctional Sugar Inj SQ SCH (08:53)
[2018-04-17] MEDS: Senna/Docusate Sodium 8.6/50 MG Tablet PO SCH (08:54)
[2018-04-17] MEDS: Lisinopril 10 MG Tablet PO SCH (08:54)
[2018-04-17 09:34] VITALS: BP 148/90; PULSE 90; RESP 18; TEMP 96.4
--- NOTE | 2018-04-17 09:56 | P.DCO ---
- Home Health Nursing Order: Signs/symptoms of disease process, Diabetic education, Medication education-adverse effect, Wound care and dressing changes, Nursing assessment with vital signs - Case Management Consult Yes - Certification I have seen patient Clint Ashraf on 04/17/18. My clinical findings support the need for the requested home health care services because: Limited mobility due to disease progression, Deconditioned with increased weakness, Limited ability to care for self, High risk of falls, Infection with risk of complications I certify that my clinical findings support that this patient is homebound because: Post-op weakness, Unsteady gait/balance, Unsafe to leave home unassisted, Need for psychosocial assistance, Unable to use public transportation
--- NOTE | 2018-04-17 10:49 | P.DS ---
Date of admission: 04/15/18 12:50 Primary care physician: No Primary Care Physician Attending physician on discharge: Abraham Villavicencio Anticipated date of discharge: 04/17/18 Brief History from admission: This is a 58-year-old male with a history of diabetes mellitus, hypertension and hypothyroidism. Patient presents to the emergency department because of right heel injury when he stepped on a metal resembling a drill bit which went through his sneaker yesterday in his backyard. He reports of low-grade temperature and worsening constant pain scale of 8 out of 10 involving the right foot. It has been bleeding. Tetanus shot 2 years ago. Foot x-ray independently reviewed by me with foreign bodies in the plantar surface of the third metatarsophalangeal joint and heel pad. Punctured wound was irrigated in the emergency department. Patient received IV vancomycin in the emergency department. All other systems reviewed negative, denies fever, chills, cough, UTI symptoms and diarrhea. Patient update on day of discharge: Patient is doing well. Wants to go home. is at bedside. No fever, chills. DS: Medications - Discharge Medications Prescriptions: doxycycline hyclate 100 mg PO BID #28 tab glimepiride 2 mg PO QAM #30 tab metformin 1,000 mg PO BID #60 tab tramadol 50 mg PO Q6H PRN #12 tab PRN Reason: Pain DS: Summary Hospital Course: Mr. Ashraf is a pleasant 58-year-old male with a history of diabetes mellitus, hypertension, hypothyroidism who presented to the emergency department on 04/15/2018 due to right heel injury when he stepped on a metal resembling a drill bit which went through his sneaker. Foot x-ray shows small radiopaque foreign bodies within the plantar soft tissues. Podiatry was consulted. Infected puncture wound of the right foot -Wound culture pending. Blood cultures negative so far. -Patient received vancomycin and Zosyn. -Toradol, tramadol for pain -Patient remains afebrile. Wants to go home. Will discharge him on Doxycycline. Diabetes mellitus -Patient takes metformin and glipizide at home. -Blood glucose within goal range 140-180. -Continue sliding scale insulin for now. -We recommend increasing Metformin to 1000mg BID and switching Glipizide to glimepiride 2 mg daily. Medications will need to be adjusted by PCP. Hypothyroidism Hypertension -Levothyroxine 25 mcg every morning and Lisinopril 10mg Qday. Full code. SCDs. Will try to get home health nursing for dressing change. - Time Spent with Patient Total time spent providing and/or coordinating discharge services: Less than 30 minutes - Quality: VTE Deep Vein Thrombosis/Pulmonary Embolism Present on Admission: No Exam Vital signs: Vital Signs 04/16/18 11:01 04/16/18 11:34 04/16/18 12:50 Temperature 96.7 F L 96.7 F L 97.8 F Pulse Rate 80 80 69 Respiratory Rate 18 18 16 Blood Pressure 151/90 H 151/90 H 78/50 L Pulse Oximetry 96 96 98 04/16/18 13:16 04/16/18 13:31 04/16/18 13:42 Temperature 98.1 F Pulse Rate 87 83 84 Respiratory Rate 16 16 16 Blood Pressure 110/67 112/75 116/78 Pulse Oximetry 95 97 97 04/16/18 14:07 04/16/18 19:10 04/16/18 21:16 Temperature 97.0 F L 97.0 F L 98.6 F Pulse Rate 84 69 88 Respiratory Rate 14 16 20 Blood Pressure 153/88 H 158/85 H 144/78 H Pulse Oximetry 84 L 97 97 04/17/18 00:00 04/17/18 08:00 Temperature 97.9 F 96.4 F L Pulse Rate 83 90 Respiratory Rate 20 18 Blood Pressure 144/84 H 148/90 H Pulse Oximetry 97 97 Intake & Output 04/16/18 04/17/18 04/17/18 18:59 06:59 18:59 Intake Total 3162.5 / 3162.5 2302.5 / 2302.5 50 / 50 Balance 3162.5 / 3162.5 2302.5 / 2302.5 50 / 50 Weight 106 kg Intake: IV 2762.5 / 2762.5 1262.5 / 1262.5 50 / 50 NS Inj 1,000 ML @ 100 mls/hr IV 2000 / 2000 900 / 900 .CONT .Q10H [facility] Rx#:[id number] LR 1000 mL Inj 1,000 ML @ 30 400 / 400 mls/hr IV.SIG .Q24H [facility] Rx#: [id number] Zosyn 3.375 GM Premix 50 ML @ 100 / 100 100 / 100 50 / 50 100 mls/hr IV.SIG Q6H [facility] Rx#: [id number] Vancomycin Inj 1,250 MG In NS 262.5 / 262.5 262.5 / 262.5 Inj 250 ML @ 250 mls/hr IV.SIG Q12H [facility] Rx#:[id number] Oral 1040 / 1040 Anesthesia Amount 400 / 400 Other: # Voids 4 # Bowel Movements 1 Results Procedures completed during hospitalization: Irrigation and debridement of puncture wound right plantar heel 04/16/2018. Labs on day of discharge: Labs from last 24 hours 04/17/18 04/16/18 04/16/18 08:00 20:29 16:47 POC Glucose 208 H 229 H 126 H 04/16/18 04/16/18 14:14 10:50 POC Glucose 153 H 145 H Preliminary micro results at discharge 04/15/18 10:55 Aerobic Blood Culture - Preliminary Blood - Peripheral No growth in 1 day Anaerobic Blood Culture - Preliminary No growth in 1 day 04/15/18 10:50 Aerobic Blood Culture - Preliminary Blood - Peripheral No growth in 1 day Anaerobic Blood Culture - Preliminary No growth in 1 day - Impressions ITS Impressions Foot X-Ray 04/15/18 10:33 CONCLUSION: Small radiopaque foreign bodies are identified within the plantar soft tissues of the foot both in the forefoot and heel as described. Discharge Plan - Discharge Disposition Patient Disposition: /Home Health Service - Discharge Condition Condition: Stable - Discharge Order Discharge Orders: Discharge Order (Routine); Ordered 04/17/18 Ordered By: Abraham Villavicencio - Discharge Details Anticipated Discharge Date: 04/17/18 - Physicians Team Primary Care Provider: Primary Care Aby Lara Attending Provider: Abraham Villavicencio Other Providers: Alden Lazaro DPM
[2018-04-17] MEDS ORDERED: Pharmacy Ordered Lab Info OTHER ONE (11:45)
== END 2018-04-17 12:07 | disposition home health service (06) ==
LOC: PHEDA 09:31 → PHEFT 09:31 → PH3 14:00
PROVIDERS: ADMIT Hospitalist; ATTEND Hospitalist

== ENCOUNTER 2018-05-25 16:34 | Observation (INO) ==
--- NOTE | 2018-05-25 16:55 | ED ---
HPI General Chief complaint: Extremity Injury, Lower Stated complaint: doc sent/foot Time Seen by Provider: 05/25/18 16:43 Source: patient Mode of arrival: ambulatory Limitations: no limitations History of Present Illness HPI narrative: 58-year-old male patient with history of diabetes, and recent history of a puncture wound to the right heel status post surgical exploration and treatment by podiatry presents back to the ER today because of ongoing pain and cellulitis at the heel right heel. The strapper sent him in because they are concerned that he could have osteomyelitis of the heel at this point and wants a patient to be admitted and get MRI workup for osteomyelitis. He denies any fevers or any other issues. Modifying Factors: None Associated Signs & Symptoms: Right heel cellulitis, possible osteomyelitis Risk Factors: Diabetic Related Data Home Medications Medication Instructions Recorded Confirmed levothyroxine 75 mcg PO DAILY 04/15/18 05/25/18 lisinopril 40 mg PO DAILY 04/15/18 05/25/18 [id number] 1 tab PO DAILY 05/25/18 05/25/18 [Multivitamin 50 Plus] Previous Rx's Medication Instructions Recorded glimepiride 2 mg PO QAM #30 tab 04/17/18 metformin 1,000 mg PO BID #60 tab 04/17/18 Allergies Allergy/AdvReac Type Severity Reaction Status Date / Time No Known Allergies Allergy Verified 05/25/18 16:37 Review of Systems ROS: all other systems reviewed are negative [facility] Medical History Medical History Diabetes (Acute) HTN (hypertension) (Acute) Hypothyroid (Acute) Surgical History Surgical History History of nasal surgery (Acute) Family History Family History Other Family history of diabetes mellitus Social History Social History Substance History: No History of Abuse Second Hand Smoke Exposure: No Smoking Status: Never smoker How Often Do You Have a Drink Containing Alcohol: Never Recent Travel in [place] within the Last 8 Weeks: No Recent Out of Country Travel within the Last 8 Weeks: No Immunization History Tetanus Immunization: <5 Years Exam Narrative Exam Narrative: GENERAL: Well-developed middle-age male patient currently in mild distress. Awake and oriented x3. SKIN: Focused skin assessment warm/dry. There is notable puncture wound to the bottom part of the right heel, with surrounding erythema, mildly tender to palpation. HEAD: Atraumatic. Normocephalic. EYES: Pupils equal and round. No scleral icterus. No injection or drainage. ENT: No nasal bleeding or discharge. Mucous membranes pink and moist. NECK: Trachea midline. No JVD. CARDIOVASCULAR: Regular rate and rhythm. No murmur appreciated. RESPIRATORY: No accessory muscle use. Clear to auscultation. Breath sounds equal bilaterally. GASTROINTESTINAL: Abdomen soft, non-tender, nondistended. Hepatic and splenic margins not palpable. MUSCULOSKELETAL: No obvious deformities. No clubbing. No cyanosis. No edema. NEUROLOGICAL: Awake and alert. No obvious cranial nerve deficits. Motor grossly within normal limits. Normal speech. PSYCHIATRIC: Appropriate mood and affect; insight and judgment normal. Course Initial Documented Vital Signs Temperature 97.2 F L 05/25/18 16:35 Pulse Rate 89 05/25/18 16:35 Respiratory Rate 20 05/25/18 16:35 Blood Pressure 165/76 H 05/25/18 16:35 Pulse Oximetry 98 05/25/18 16:35 Last Documented Vital Signs Temperature 97.2 F L 05/25/18 16:35 Pulse Rate 89 05/25/18 16:35 Respiratory Rate 20 05/25/18 16:35 Blood Pressure 165/76 H 05/25/18 16:35 Pulse Oximetry 98 05/25/18 16:35 Medical Decision Making MDM Narrative Medical decision making narrative: Workup was initiated in the patient. Vital signs are stable in the ER. Case has been discussed with Dr. Sanchez for admission. Podiatry will be consulted and further workup ordered for the patient. Medical Screen Exam Complete: Yes Emergency Medical Condition: Yes Differential Diagnosis Differential Diagnosis: Cellulitis versus osteomyelitis of the heel Lab Data Lab results reviewed: Yes I reviewed the patient's lab results. Result diagrams: 05/25/18 16:55 05/25/18 16:55 Lab Results 05/25/18 05/25/18 05/25/18 Range/Units 16:54 16:55 16:55 WBC 7.6 (4.0-11.0) th/mm3 RBC 4.36 L (4.50-5.90) mil/mm3 Hgb 14.8 (13.0-17.0) gm/dL Hct 40.9 (39.0-51.0) % MCV 93.8 (80.0-100.0) fL MCH 33.9 (27.0-34.0) pg MCHC 36.2 H (32.0-36.0) % RDW 13.2 (11.6-17.2) % Plt Count 185 (150-450) th/mm3 MPV 8.5 (7.0-11.0) fL Neut % (Auto) 64.8 (16.0-70.0) % Lymph % (Auto) 25.9 (9.0-44.0) % Addison % (Auto) 6.3 (0.0-8.0) % Eos % (Auto) 2.5 (0.0-4.0) % Baso % (Auto) 0.5 (0.0-2.0) % Neut # (Auto) 4.9 (1.8-7.7) th/mm3 Lymph # (Auto) 2.0 (1.0-4.8) th/mm3 Addison # (Auto) 0.5 (0.0-0.9) th/mm3 Eos # (Auto) 0.2 (0.0-0.4) th/mm3 Baso # (Auto) 0.0 (0.0-0.2) th/mm3 WBC Differential . Differential Comment Auto diff final ESR (0-20) mm/hr Sodium 139 (136-145) meq/L Potassium 4.0 (3.5-5.1) meq/L Chloride 106 (98-107) meq/L Carbon Dioxide 25.4 (21.0-32.0) meq/L Anion Gap 8 (5-15) meq/L BUN 28 H (7-18) mg/dL Creatinine 1.36 H (0.60-1.30) mg/dL Estimated GFR 54 L (>89) mL/min POC Glucose 248 H (68-110) mg/dl Random Glucose 251 H (74-106) mg/dL Lactic Acid (0.4-2.0) mmol/L Calcium 8.6 (8.5-10.1) mg/dL Magnesium 2.0 (1.5-2.5) mg/dL Total Bilirubin 0.5 (0.2-1.0) mg/dL AST 26 (15-37) U/L ALT 47 (12-78) U/L Alkaline Phosphatase 130 H (45-117) U/L C-Reactive Protein 0.86 H (0.00-0.30) mg/dL Total Protein 7.5 (6.4-8.2) g/dL Albumin 3.9 (3.4-5.0) g/dL 05/25/18 05/25/18 Range/Units 16:55 17:00 WBC (4.0-11.0) th/mm3 RBC (4.50-5.90) mil/mm3 Hgb (13.0-17.0) gm/dL Hct (39.0-51.0) % MCV (80.0-100.0) fL MCH (27.0-34.0) pg MCHC (32.0-36.0) % RDW (11.6-17.2) % Plt Count (150-450) th/mm3 MPV (7.0-11.0) fL Neut % (Auto) (16.0-70.0) % Lymph % (Auto) (9.0-44.0) % Addison % (Auto) (0.0-8.0) % Eos % (Auto) (0.0-4.0) % Baso % (Auto) (0.0-2.0) % Neut # (Auto) (1.8-7.7) th/mm3 Lymph # (Auto) (1.0-4.8) th/mm3 Addison # (Auto) (0.0-0.9) th/mm3 Eos # (Auto) (0.0-0.4) th/mm3 Baso # (Auto) (0.0-0.2) th/mm3 WBC Differential Differential Comment ESR 40 H (0-20) mm/hr Sodium (136-145) meq/L Potassium (3.5-5.1) meq/L Chloride (98-107) meq/L Carbon Dioxide (21.0-32.0) meq/L Anion Gap (5-15) meq/L BUN (7-18) mg/dL Creatinine (0.60-1.30) mg/dL Estimated GFR (>89) mL/min POC Glucose (68-110) mg/dl Random Glucose (74-106) mg/dL Lactic Acid 1.3 (0.4-2.0) mmol/L Calcium (8.5-10.1) mg/dL Magnesium (1.5-2.5) mg/dL Total Bilirubin (0.2-1.0) mg/dL AST (15-37) U/L ALT (12-78) U/L Alkaline Phosphatase (45-117) U/L C-Reactive Protein (0.00-0.30) mg/dL Total Protein (6.4-8.2) g/dL Albumin (3.4-5.0) g/dL Discharge Plan Discharge Disposition Patient Disposition: ED Admit(ED Internal Use Only) Discharge Condition Condition: Stable Discharge Order Discharge Orders: ED Use Only Admit Order (Routine); Ordered 05/25/18 Ordered By: Shelbie Queen Discharge Details Anticipated Discharge Date: 05/25/18 Diagnosis: Cellulitis of heel, right Physicians Team ED Provider: Shelbie Queen Primary Care Provider: Primary Care Heenai,Aby Rxs /Orders / Referrals /Forms Prescriptions: No Action [id number] [Multivitamin 50 Plus] Tablet 1 tab PO DAILY RF: 0 levothyroxine 25 mcg Tablet 75 mcg PO DAILY RF: 0 lisinopril 10 mg Tablet 40 mg PO DAILY RF: 0 metformin 1,000 mg Tablet 1,000 mg PO BID Qty: 60 RF: 11 glimepiride 2 mg Tablet 2 mg PO QAM Qty: 30 RF: 11 Status ED Status: With Doctor
[2018-05-25 17:26] LABS: Baso % (Auto) 0.5 % (0.0-2.0); Eos # (Auto) 0.2 th/mm3 (0.0-0.4); Eos % (Auto) 2.5 % (0.0-4.0); Hematocrit 40.9 % (39.0-51.0); Hemoglobin 14.8 gm/dL (13.0-17.0); Lymph % (Auto) 25.9 % (9.0-44.0); Mean Corpuscular Hemoglobin 33.9 pg (27.0-34.0); Mean Corpuscular Volume 93.8 fL (80.0-100.0); Mean Platelet Volume 8.5 fL (7.0-11.0); Mono # (Auto) 0.5 th/mm3 (0.0-0.9); Mono % (Auto) 6.3 % (0.0-8.0); Neut # (Auto) 4.9 th/mm3 (1.8-7.7); Neut % (Auto) 64.8 % (16.0-70.0); Platelet Count 185 th/mm3 (150-450); Red Blood Count 4.36 mil/mm3 (4.50-5.90); Red Cell Distribution Width 13.2 % (11.6-17.2); White Blood Count 7.6 th/mm3 (4.0-11.0)
[2018-05-25 17:29] LABS: Mean Corpuscular HGB Conc 36.2 % (32.0-36.0)
[2018-05-25 17:39] LABS: Alanine Aminotransferase 47 U/L (12-78); Albumin 3.9 g/dL (3.4-5.0); Anion Gap 8 meq/L (5-15); Aspartate Aminotransferase 26 U/L (15-37); Blood Urea Nitrogen 28 mg/dL (7-18); C-Reactive Protein 0.86 mg/dL (0.00-0.30); Calcium 8.6 mg/dL (8.5-10.1); Carbon Dioxide 25.4 meq/L (21.0-32.0); Chloride 106 meq/L (98-107); Glomerular Filtration Rate 54 mL/min (>89); Glucose,Random 251 mg/dL (74-106); Sodium 139 meq/L (136-145)
[2018-05-25 17:42] LABS: Alkaline Phosphatase 130 U/L (45-117); Total Protein 7.5 g/dL (6.4-8.2)
[2018-05-25] MEDS ORDERED: Bisacodyl 10 MG Supp RECTAL PRN (18:32)
[2018-05-25] MEDS ORDERED: Acetaminophen 325 MG Tablet PO PRN (18:32)
[2018-05-25] MEDS ORDERED: Dextrose 50% in Water 50 ML Vial IV.PUSH PRN (19:01)
[2018-05-25] MEDS ORDERED: Vancomycin Consult Pharmacy OTHER PRN (19:01)
[2018-05-25] MEDS ORDERED: Morphine Sulfate Inj 2 MG/ML Vial IV.PUSH PRN (19:03)
--- NOTE | 2018-05-25 19:43 | P.HPIM ---
History of Present Illness Primary Care Physician: No Primary Care Physician History of Present Illness: This is a 58-year-old male with a PMH of DM and Nonhealing Right Heel Wound who was sent to the ER by his Cold Rolling Coordinator, Dr. Lazaro, for admission and MRI for possible Osteomyelitis. Previously underwent I&D of right heel puncture wound/ cellulitis by Dr. Lazaro on 04/16/18, notes he was on antibiotics x14 days post-op, has been having persistent right heel cellulitis and was seen by Dr. Lazaro today. Denies fever or chills. On arrival, BP 165/76, HR 89, O2 sat 98% on RA, Afebrile. CBC essentially unremarkable. Creatinine 1.36, previously 0.77 on 04/16/2018. CRP 0.86. MRI pending. - Diagnosis (1) Cellulitis of heel, right (2) DM (diabetes mellitus) (3) CARRIE (acute kidney injury) Review of Systems PAST FAMILY HISTORY: Reviewed. No h/o DM or CAD All other systems reviewed negative except as stated [facility] - History History Provided By: Patient - Medical History Medical History: Medical History (Last Reviewed 05/25/18 @ 16:54 by Shelbie Queen MD) Diabetes HTN (hypertension) Hypothyroid - Surgical History Surgical History: Surgical History (Last Reviewed 05/25/18 @ 16:54 by Shelbie Queen MD) History of nasal surgery - Family History Family History: Family History (Last Updated 04/15/18 @ 14:57 by Victor Manuel Jimenez MD) Other Family history of diabetes mellitus - Tobacco History Second Hand Smoke Exposure: No Smoking Status: Never smoker - Alcohol History How Often Do You Have a Drink Containing Alcohol: Never - Substance Use History Substance History: No History of Abuse - Travel History Recent Travel in the [place] Within the Last 8 Weeks: No Recent Travel Out of the Country Within the Last 8 Weeks: No - Immunization History Tetanus Immunization: <5 Years Medications and Allergies Active Medications: Active Medications Acetaminophen (Tylenol) 650 mg PO Q4H PRN PRN Reason: Temp > 100.4 Hydrocodone Bitart/Acetaminophen (Parkman 5/325) 1 tab PO Q4H PRN PRN Reason: PAIN 3-5 Al Hydroxide/Mg Hydroxide (Milk Of Magnesia Liq) 30 ml PO Q12H PRN PRN Reason: Mild Constipation Bisacodyl (Dulcolax Supp) 10 mg RECTAL DAILY PRN PRN Reason: SEVERE CONSITIPATION Dextrose (D50w Vial) 50 ml IV.PUSH UNSCH PRN PRN Reason: PER HYPOGLYCEMIA PROTOCOL Glimepiride (Amaryl) 2 mg PO DAILY [facility] Glucagon (Glucagon Inj) 1 mg OTHER PRN PRN PRN Reason: for Hypoglycemia Protocol Cefepime HCl 1,000 mg/ Sodium (Chloride) 100 mls @ 200 mls/hr IV.SIG Q12H [facility] Sodium Chloride (Ns Inj) 1,000 mls @ 100 mls/hr IV.CONT .Q10H [facility] Vancomycin HCl 1,900 mg/ (Sodium Chloride) 519 mls @ 250 mls/hr IV.SIG Q24H [facility] Insulin Aspart (Novolog Insulin Correctional Sugar Inj) 0 unit SQ ACHS [facility]; Protocol Lactulose (Lactulose Liq) 30 ml PO DAILY PRN PRN Reason: SEVERE CONSITIPATION Levothyroxine Sodium (Synthroid) 75 mcg PO DAILY@0600 [facility] Morphine Sulfate (Morphine Inj) 2 mg IV.PUSH Q4H PRN PRN Reason: PAIN 6-10 Multivitamins/Minerals (Theragran-M) 1 tab PO DAILY [facility] Ondansetron HCl (Zofran Inj) 4 mg IV.PUSH Q6H PRN PRN Reason: NAUSEA OR VOMITING Pharmacy Profile Note (Vancomycin Consult Pharmacy) 1 each OTHER UNSCH PRN PRN Reason: Pharmacy to dose Senna/Docusate Sodium (Rosa-Colace) 1 tab PO BID [facility] Sennosides (Senokot) 17.2 mg PO Q12H PRN PRN Reason: Moderate Constipation Sodium Chloride (Ns Flush) 2 ml IV.FLUSH PRN PRN PRN Reason: FLUSH AFTER USING IV ACCESS Sodium Chloride (Ns Flush) 2 ml IV.FLUSH BID [facility] Sodium Chloride (Ns Flush) 2 ml IV.FLUSH BID [facility] Sodium Chloride (Ns Flush) 2 ml IV.FLUSH PRN PRN PRN Reason: FLUSH AFTER USING IV ACCESS Allergies Allergy/AdvReac Type Severity Reaction Status Date / Time No Known Allergies Allergy Verified 05/25/18 16:37 Home Medications Medication Instructions Recorded Confirmed Type levothyroxine 75 mcg PO DAILY 04/15/18 05/25/18 History lisinopril 40 mg PO DAILY 04/15/18 05/25/18 History rbogkzaxjhba-wlkvjnvc-spsgpn 1 tab PO DAILY 05/25/18 05/25/18 History [Multivitamin 50 Plus] Exam Vital signs: Vital Signs 05/25/18 16:35 Temperature 97.2 F L Pulse Rate 89 Respiratory Rate 20 Blood Pressure 165/76 H Pulse Oximetry 98 Intake & Output 05/25/18 05/25/18 05/26/18 06:59 18:59 06:59 Weight 95.254 kg Narrative: PE: GENERAL: Pleasant middle-aged white male in no acute distress. Family at bedside. SKIN: Focused skin assessment warm and dry. HEENT: PERRLA, EOMI. No scleral icterus or conjunctival pallor. No lid lag or facial droop. CARDIOVASCULAR: Regular rate and rhythm. No obvious murmurs to auscultation. No chest tenderness to palpation. RESPIRATORY: No obvious rhonchi or wheezing. Clear to auscultation. Breath sounds equal bilaterally. GASTROINTESTINAL: Abdomen soft, non-tender, nondistended. BS normal. MUSCULOSKELETAL: Extremities without clubbing, cyanosis, or edema. No obvious deformities. Right heel w/ previous puncture wound, +erythema. NEUROLOGICAL: Awake, alert and oriented x4. No focal neurologic deficits. Moving both upper and lower extremities spontaneously. PSYCHIATRIC: Appropriate mood and affect. Insight and judgment normal. Results - Labs CBC & Chem 7: 05/25/18 16:55 05/25/18 16:55 Labs: Short CBC 05/25/18 Range/Units 16:55 WBC 7.6 (4.0-11.0) th/mm3 Hgb 14.8 (13.0-17.0) gm/dL Hct 40.9 (39.0-51.0) % Plt Count 185 (150-450) th/mm3 BMP 05/25/18 16:55 Sodium 139 Potassium 4.0 Chloride 106 Carbon Dioxide 25.4 BUN 28 H Creatinine 1.36 H Calcium 8.6 Liver Function 05/25/18 Range/Units 16:55 Total Bilirubin 0.5 (0.2-1.0) mg/dL AST 26 (15-37) U/L ALT 47 (12-78) U/L Alkaline Phosphatase 130 H (45-117) U/L Albumin 3.9 (3.4-5.0) g/dL Caprini VTE Risk Assessment Caprini VTE Risk Assessment: No/Low Risk (score <= 1) VTE Mechanical Exception: LE injury/wound Caprini Risk Assessment Model: Point Value = 1 Point Value = 2 Point Value = 3 Point Value = 5 Age 41-60 Minor surgery BMI > 25 kg/m2 Swollen legs Varicose veins or History of unexplained or recurrent spontaneous Oral contraceptives or hormone replacement Sepsis (< 1 month) Serious lung disease, including pneumonia (< 1 month) Abnormal pulmonary function Acute myocardial infarction Congestive heart failure (< 1 month) History of inflammatory bowel disease Medical patient at bed rest Age 61-74 Arthroscopic surgery Major open surgery (> 45 min) Laparoscopic surgery (> 45 min) Malignancy Confined to bed (> 72 hours) Immobilizing plaster cast Central venous access Age >= 75 History of VTE Family history of VTE Factor V Leiden Prothrombin [id number] Lupus anticoagulant Anticardiolipin antibodies Elevated serum homocysteine Heparin-induced thrombocytopenia Other congenital or acquired thrombophilia Stroke (< 1 month) Elective arthroplasty Hip, pelvis, or leg fracture Acute spinal cord injury (< 1 month) Prophylaxis Regimen: Total Risk Factor Score Risk Level Prophylaxis Regimen 0-1 Low Early ambulation 2 Moderate Order ONE of the following: *Sequential Compression Device (SCD) *Heparin 5000 units SQ BID 3-4 Higher Order ONE of the following medications: *Heparin 5000 units SQ TID *Enoxaparin/Lovenox 40 mg SQ daily (WT < 150 kg, CrCl > 30 mL/min) *Enoxaparin/Lovenox 30 mg SQ daily (WT < 150 kg, CrCl > 10-29 mL/min) *Enoxaparin/Lovenox 30 mg SQ BID (WT < 150 kg, CrCl > 30 mL/min) AND/OR *Sequential Compression Device (SCD) 5 or more Highest Order ONE of the following medications: *Heparin 5000 units SQ TID (Preferred with Epidurals) *Enoxaparin/Lovenox 40 mg SQ daily (WT < 150 kg, CrCl > 30 mL/min) *Enoxaparin/Lovenox 30 mg SQ daily (WT < 150 kg, CrCl > 10-29 mL/min) *Enoxaparin/Lovenox 30 mg SQ BID (WT < 150 kg, CrCl > 30 mL/min) AND *Sequential Compression Device (SCD) Assessment and Plan - Assessment (1) Cellulitis of heel, right Code(s): L03.115 - Cellulitis of right lower limb Status: Acute (2) DM (diabetes mellitus) Code(s): E11.9 - Type 2 diabetes mellitus without complications Status: Acute (3) CARRIE (acute kidney injury) Code(s): N17.9 - Acute kidney failure, unspecified Status: Acute - Plan A/P: 1. Right Heel Cellulitis: h/o right heel puncture wound/cellulitis, s/p I&D by Dr. Lazaro on 04/16/18, completed 14 day course of antibiotics after surgery , now w/ ongoing infection, referred to ER by Dr. Lazaro for MRI due to concern for Osteo. Afebrile, no leukocytosis, will hold off on antibiotics at this time. Follow up MRI, Consult Podiatry for further eval. 2. CARRIE: Creatinine 1.36, previously 0.77 on 04/16/18. IVF for hydration, monitor I/O, repeat labs in am. 3. DM: Sliding scale w/ Accu-Cheks, hold Metformin for now, check Hgb A1c. 4. DVT Prophylaxis: Mechanical contraindication due to wound 5. Social work for d/c planning as needed. 6. Case discussed w/ day physician at length, labs/records/imaging reviewed by me.
[2018-05-25] MEDS ORDERED: Vancomycin Inj 1,900 MG in Sodium Chlor 0.9% Inj 500 ML IV.SIG SCH (22:00)
[2018-05-25 23:21] VITALS: TEMP 97.7
[2018-05-26] MEDS: Insulin NovoLOG Aspart Correctional Sugar Inj SQ SCH ×3 (00:24→14:35)
[2018-05-26] MEDS: Sod Chloride 0.9% Inj 1,000 ML IV.CONT SCH ×2 (00:25→06:23)
[2018-05-26] MEDS: Senna/Docusate Sodium 8.6/50 MG Tablet PO SCH ×2 (00:25→09:15)
[2018-05-26] MEDS ORDERED: Gadobutrol PF 10 MMOL/10 ML Vial (for RAD) IV.SIG ONE (07:31)
--- NOTE | 2018-05-26 08:09 | MR ---
EXAM DATE: 05/26/2018 7:56 AM EST AGE/SEX: 58 years / Male INDICATIONS: Osteomyelitis. Debridement of right heel one month ago. Evaluate for osteomyelitis. CLINICAL DATA: This is the patient's sequela encounter. Patient reports that signs and symptoms have been present for 2 months and indicates a pain score of 0/10. MEDICAL/SURGICAL HISTORY: Diabetes mellitus type II. Hypertension. . Right heel wound debridem ent 04/16/18. COMPARISON: HPO, FOOT COMPLETE RIGHT 3V, 04/15/2018. . TECHNIQUE: Multiplanar, multisequence MRI examination was performed without contrast and after th e intravenous administration of 10cc ml Gadavist (gadobutrol) single exam dose. FINDINGS: Bones: The osseous structures are in normal alignment. There is marrow edema identified within the in ferior aspect of the calcaneus. No abnormal enhancement after the administration of contrast. There a re no obvious erosions present. Joint Spaces: No joint effusion or loose bodies are seen. The joint spaces are preserved. Tendons: The flexor tendons are intact. Soft Tissues: There is extensive soft tissue edema present throughout the plantar aspect of the foot adjacent to the calcaneus as well as surrounding the metatarsals. This demonstrates heterogeneous enh ancement. Other: There is a focal area of signal void overlying the plantar aspect of the calcaneus within the subcutaneous soft tissues concerning for possible foreign body. This measures 7 mm in size. Post Contrast: There are no abnormal areas of enhancement in the marrow or muscle obtained after intr avenous administration of gadolinium. CONCLUSION: 1. No evidence of osteomyelitis. There is marrow edema identified within the inferior aspect of the calcaneus and extensive soft tissue edema and enhancement identified both within the plantar soft tis sues as well as the soft tissues surrounding the metatarsals concerning for diffuse soft tissue infec tion. There is an area of signal void overlying the plantar soft tissues at the level of the calcaneu s. Prior plain radiograph demonstrated foreign bodies within this location. Given the signal void con cern is for persistent foreign body in this location. Recommend correlation with radiographs. Electronically signed by: Michelle Cole MD Board Certified Radiologist 05/26/2018 8:07 AM CHANI Cortes
[2018-05-26] MEDS ORDERED: Multivitamin/Minerals Therapeutic Tablet PO SCH (09:00)
[2018-05-26] MEDS ORDERED: Glimepiride 2 MG Tablet PO SCH (09:00)
[2018-05-26 10:58] LABS: Baso % (Auto) 0.6 % (0.0-2.0); Eos # (Auto) 0.2 th/mm3 (0.0-0.4); Eos % (Auto) 3.6 % (0.0-4.0); Hemoglobin 14.9 gm/dL (13.0-17.0); Lymph # (Auto) 1.7 th/mm3 (1.0-4.8); Lymph % (Auto) 27.5 % (9.0-44.0); Mean Corpuscular Hemoglobin 34.1 pg (27.0-34.0); Mean Corpuscular Volume 93.6 fL (80.0-100.0); Mean Platelet Volume 8.1 fL (7.0-11.0); Mono # (Auto) 0.4 th/mm3 (0.0-0.9); Mono % (Auto) 6.5 % (0.0-8.0); Neut # (Auto) 3.7 th/mm3 (1.8-7.7); Neut % (Auto) 61.8 % (16.0-70.0); Platelet Count 160 th/mm3 (150-450); Red Blood Count 4.38 mil/mm3 (4.50-5.90); Red Cell Distribution Width 12.9 % (11.6-17.2)
[2018-05-26 11:05] LABS: Mean Corpuscular HGB Conc 36.4 % (32.0-36.0)
[2018-05-26 11:43] LABS: Alanine Aminotransferase 40 U/L (12-78); Albumin 3.5 g/dL (3.4-5.0); Anion Gap 8 meq/L (5-15); Aspartate Aminotransferase 28 U/L (15-37); Blood Urea Nitrogen 18 mg/dL (7-18); Calcium 7.9 mg/dL (8.5-10.1); Chloride 106 meq/L (98-107); Glomerular Filtration Rate 78 mL/min (>89); Glucose,Random 281 mg/dL (74-106); Potassium 4.1 meq/L (3.5-5.1); Sodium 137 meq/L (136-145)
[2018-05-26 11:45] LABS: Alkaline Phosphatase 101 U/L (45-117); Total Protein 7.2 g/dL (6.4-8.2)
--- NOTE | 2018-05-26 11:47 | ECG ---
Date Performed: 05/25/2018 Time Performed: 17:02:55 PTAGE: 58 years EKG: Sinus rhythm NORMAL ECG Since the PREVIOUS TRACING , no significant change noted PREVIOUS TRACIN09/19/2015 11.59 DOCTOR: Deven Hodgson Interpretating Date/Time 05/26/2018 11:54:14
[2018-05-26 11:51] VITALS: BP 141/75; PULSE 79; RESP 16; O2SAT 94
--- NOTE | 2018-05-26 12:03 | XR ---
EXAM DATE: 05/26/2018 11:47 AM EST AGE/SEX: 58 years / Male INDICATIONS: Right heel pain, patient stepped on sharp object. CLINICAL DATA: This is the patient's subsequent encounter. Patient reports that signs and symptoms h ave been present for 1 month and indicates a pain score of 1/10. MEDICAL/SURGICAL HISTORY: None. . I and D of right foot. COMPARISON: No prior exams available for comparison. FINDINGS: No definite fractures, or dislocations are identified. No definite lytic or sclerotic les ion is seen. There is a radiopaque needlelike structure in the subcutaneous tissues at the level of third and fourth proximal phalanges measures 3 to 4 mm in size volarly. Small calcaneal spur is present at the fracture site of the plantar aponeurosis. CONCLUSION: Radiopaque wire/needle like foreign body in subcutaneous tissues as above. Electronically signed by: Christ Carter MD Board Certified Radiologist 05/26/2018 12:02 PM EST
[2018-05-26 13:24] LABS: Hemoglobin A1c 9.6 % (4.3-6.0)
--- NOTE | 2018-05-26 16:27 | P.PNIM ---
Subjective Interval history: Late entry Follow up right heel cellulitis, foreign body Patient seen and examined at bedside. 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 Discussed with patient that he would only be discharged once cleared from the podiatry service. Patient insisted that he wanted to go home and that he could take oral antibiotics from home. Initial x-ray of right foot showed small radiopaque foreign body within the plantar soft tissue of the foot both in the forefoot and heel. MRI of the right foot was completed and showed no evidence of osteomyelitis however there was marrow edema within the inferior aspect of the calcaneus and extensive soft tissue edema and enhancement identified both within the plantar soft tissues as well as the soft tissues surrounding the metatarsals concerning for diffuse soft tissue infection. There was an area noted of signal void overlying the plantar soft tissues at the level of the calcaneus. Repeat foot x-ray was completed and showed a radiopaque wire/needle like foreign body in the subcutaneous tissues. Patient was educated that podiatry would have to be notified to take a look at the repeat x-ray prior to determining whether or not he could be discharged. Patient grew increasingly more agitated. He repeatedly stated he does not understand why he has to be here. RN notified podiatry of findings and stated the plan would be to take patient to the OR in the morning. Despite a detailed discussion regarding the risks, benefits versus alternatives of leaving AMA patient decided to sign himself out. He displayed adequate decision-making capability. Physical Exam Vital signs: Last Vital Signs Temp 97.7 F 05/26/18 03:47 Pulse 79 05/26/18 08:00 Resp 16 05/26/18 08:00 BP 141/75 H 05/26/18 08:00 Pulse Ox 94 L 05/26/18 08:00 Intake & Output 05/24/18 05/25/18 05/26/18 05/27/18 06:59 06:59 06:59 06:59 Weight 100 kg Narrative: PE: GENERAL: Pleasant middle-aged white male in no acute distress. Family at bedside. SKIN: Focused skin assessment warm and dry. HEENT: PERRLA, EOMI. No scleral icterus or conjunctival pallor. No lid lag or facial droop. CARDIOVASCULAR: Regular rate and rhythm. No obvious murmurs to auscultation. No chest tenderness to palpation. RESPIRATORY: No obvious rhonchi or wheezing. Clear to auscultation. Breath sounds equal bilaterally. GASTROINTESTINAL: Abdomen soft, non-tender, nondistended. BS normal. MUSCULOSKELETAL: Extremities without clubbing, cyanosis, or edema. No obvious deformities. Right heel w/ previous puncture wound, +erythema. NEUROLOGICAL: Awake, alert and oriented x4. No focal neurologic deficits. Moving both upper and lower extremities spontaneously. PSYCHIATRIC: Appropriate mood and affect. Insight and judgment normal. Results Labs CBC & Chem 7: 05/26/18 10:10 05/26/18 10:10 Labs: Microbiology 05/25/18 16:45 Blood - Peripheral Aerobic Blood Culture - Preliminary No growth in 1 day 05/25/18 16:45 Blood - Peripheral Anaerobic Blood Culture - Preliminary No growth in 1 day 05/25/18 17:00 Blood - Peripheral Aerobic Blood Culture - Preliminary No growth in 1 day 05/25/18 17:00 Blood - Peripheral Anaerobic Blood Culture - Preliminary No growth in 1 day Imaging Imaging: Impressions Foot MRI 05/26/18 00:00 CONCLUSION: 1. No evidence of osteomyelitis. There is marrow edema identified within the inferior aspect of the calcaneus and extensive soft tissue edema and enhancement identified both within the plantar soft tissues as well as the soft tissues surrounding the metatarsals concerning for diffuse soft tissue infection. There is an area of signal void overlying the plantar soft tissues at the level of the calcaneus. Prior plain radiograph demonstrated foreign bodies within this location. Given the signal void concern is for persistent foreign body in this location. Recommend correlation with radiographs. Foot X-Ray 05/26/18 00:00 CONCLUSION: Radiopaque wire/needle like foreign body in subcutaneous tissues as above. Assessment and Plan (1) Cellulitis of heel, right: Code(s): L03.115 - Cellulitis of right lower limb Status: Acute (2) DM (diabetes mellitus): Code(s): E11.9 - Type 2 diabetes mellitus without complications Status: Acute (3) CARRIE (acute kidney injury): Code(s): N17.9 - Acute kidney failure, unspecified Status: Acute Plan Patient is a 58-year-old male with history significant for diabetes and nonhealing right heel wound. He was sent to the emergency department by his farm crew member Dr. Lazaro for rule out of osteomyelitis. Patient recently underwent I&D of the right heel puncture wound on 04/16/2018. He had completed a course of 2 weeks of antibiotics but has had persistent right heel cellulitis. Probable foreign body right heel -X-ray shows radiopaque wire/needle like foreign body and subcutaneous tissues -MRI of right foot shows no evidence of osteomyelitis however there is marrow edema identified within the inferior aspect of the calcaneus and extensive soft tissue edema and enhancement identified both within the plantar -soft tissues as well as the soft tissues surrounding the metatarsals concerning for diffuse soft tissue infection. -Podiatry consulted and following. Plan was for patient to undergo surgery the following morning. Acute kidney injury -Improved status post IV fluid hydration Type 2 diabetes mellitus -Patient's blood sugars greater than 200 during stay. -A1c 9.6 Patient Clint Ashraf has decided to leave the hospital against medical advice. This patient has the capacity to refuse care and understands the risks of leaving, including permanent disability and/or , and has had an opportunity to ask questions about his/her condition. The patient has been informed that he/she may return for care at any time, and follow up has been arranged/advised. 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
--- NOTE | 2018-05-26 16:31 | MB ---
cc: Gabriela Gibson DPM DATE: 05/26/2018 TIME PATIENT WAS EVALUATED: 10 a.m. HISTORY OF PRESENT ILLNESS: The patient is a 58-year-old male with a past medical history of diabetes and nonhealing wound on the right foot. He was referred to the ED for MRI, possible osteo workup. The patient is status post right heel puncture wound on 04/16/2018. Completed oral antibiotics. Denies any nausea, vomiting, fever, diarrhea or chills. PAST MEDICAL HISTORY: Per HPI. PAST SURGICAL HISTORY: Per HPI. SOCIAL HISTORY: Denies smoking, illicit drugs and alcohol. MEDICATIONS: Per chart. PHYSICAL EXAMINATION: Right heel with a pinpoint opening 1 x 2 mm. Some mild serous drainage. There is no purulence. No pain on palpation. There is no active drainage. Protective sensation grossly diminished. DP and PT palpable and intact. WBC on 05/26/2018 of 6.0, RBC of 4.38, H and H 14.9 and 41.0. ESR of 40. X-RAYS: Right foot, 3 views: In the distal forefoot, there is a small metallic foreign body at the level of the MP joint between the third and fourth phalanx. MRI with no foreign bodies on the right heel. Noted mild increase in uptake on T2 signal intensity. ASSESSMENT AND PLAN: 1. Right foot heel wound, delayed healing. 2. Diabetes with neuropathy. 3. Status post right heel incision and drainage. At this point, I discussed with the patient an x-ray to work up and complete his workup. He was seen this morning. On discussion with the patient at 3:51 p.m., his comments were, "I'm here for my heel. There is no needle in my heel. I'm leaving," and he hung up at the end of that conversation. We will attempt to follow the patient as an outpatient. I think if the patient offloads appropriately and, depending on his cultures from his ED visit, we will dose his oral medication or antibiotics appropriately. We will attempt to follow the patient as an outpatient. Thank you for the kind consult. Gabriela Gibson DPM SR/katie , 03:51 PM , 03:59 PM
== END 2018-05-26 16:08 | disposition left against medical advice (07) ==
LOC: NEPC 16:34 → NEDA 16:34 → NEPHCDU 21:39
PROVIDERS: ADMIT Internal Medicine; ATTEND Internal Medicine